=== PATIENT | female | born 1955 | race Caucasian/White ===

== ENCOUNTER 2017-04-08 10:15 | Day surgery (SDC) | payer MEDICARE, OTHER ==
[~2017-04-08] VITALS: Ht 160 cm; Wt 68.4 kg
[~2017-04-08 10:15] MED LIST: ALBU6.7H INH; ATOR20TA PO; CLAR10TA7 PO; CYMB60CA PO; FAMO40TA PO; FLUTPOW4; LAMO200T PO; LOPE2 PO; MAXZ25 PO; METO25 PO; MONT10 PO; NAPR250T57 PO; PROT40TA PO; TRAZ150T75 PO; [UNRECOGNIZED DRUG - OTHER] PO
[2017-04-08] MEDS ORDERED: NS 1000P @30 MLS/HR (KVO) IV SCH (11:00)
[2017-04-08 11:25] LABS: AUTOMATED NEUTROPHIL # 4.3 TH/MM3 (1.8-7.7); BASOPHIL # 0.1 TH/MM3 (0-0.2); BASOPHIL % 1.1 % (0.0-2.0); EOSINOPHIL # 0.2 TH/MM3 (0-0.4); EOSINOPHIL % 2.4 % (0.0-4.0); HEMATOCRIT 42.6 % (35.0-46.0); HEMO FLAGS DIFF FINAL; LYMPH % 23.5 % (9.0-44.0); LYMPHOCYTE # 1.5 TH/MM3 (1.0-4.8); MEAN CELL VOLUME 93.9 FL (80.0-100.0); MEAN CORPUSCULAR HEMOGLOBIN 31.3 PG (27.0-34.0); MEAN CORPUSCULAR HGB CONC 33.4 % (32.0-36.0); MONO % 6.1 % (0.0-8.0); NEUT % 66.9 % (16.0-70.0); PLATELET COUNT 345 TH/MM3 (150-450); RED BLOOD COUNT 4.54 MIL/MM3 (4.00-5.30); RED CELL DISTRIBUTION WIDTH 13.6 % (11.6-17.2); WHITE BLOOD COUNT 6.5 TH/MM3 (4.0-11.0)
[2017-04-08] MEDS ORDERED: NITR1SUB3 SL (11:25)
[2017-04-08] MEDS ORDERED: IBUP-232 PO (11:25)
[2017-04-08] MEDS ORDERED: TRAZ1TAB45 PO (11:25)
[2017-04-08] MEDS ORDERED: ASPI81TA81 (11:25)
[2017-04-08] MEDS ORDERED: VENTAER INH (11:25)
[2017-04-08] MEDS ORDERED: FLUTI110I INH (11:25)
[2017-04-08] MEDS ORDERED: CLON0.5T PO (11:25)
[2017-04-08] MEDS ORDERED: DULO1CAP3 PO (11:25)
[2017-04-08] MEDS ORDERED: PREV30TA3 PO (11:25)
[2017-04-08] MEDS ORDERED: METO25TA3 PO (11:25)
[2017-04-08] MEDS ORDERED: ATOR40TA16 PO (11:25)
[2017-04-08] MEDS ORDERED: DIPH2.5T60 (11:25)
[2017-04-08] MEDS ORDERED: DICY10CA12 PO (11:25)
[2017-04-08] MEDS ORDERED: LAMO200T PO (11:25)
[2017-04-08 11:37] VITALS: BP 138/81; PULSE 77; RESP 18; TEMP 98.3; O2SAT 98
[2017-04-08 11:37] LABS: PROTHROMBIN TIME - PATIENT 10.2 SEC (9.8-11.6)
[2017-04-08 11:39] LABS: APTT (PATIENT) 27.1 SEC (24.3-30.1); INTERNATIONAL NORMALIZED RATIO 0.9 RATIO
[2017-04-08 12:12] LABS: BICARBONATE 30.7 MEQ/L (21.0-32.0); POTASSIUM 3.8 MEQ/L (3.5-5.1)
[2017-04-08] MEDS ORDERED: IOHEXOL 350 MG/ML 100 ML BTL (for Cath Lab) OTHER ONE (12:50)
[2017-04-08] MEDS ORDERED: HEPARIN-NS/PF INJ 500 ML ONE (13:00)
[2017-04-08] MEDS ORDERED: MIDAZOLAM HCL 5 MG/5 ML VIAL ONE (13:01)
--- NOTE | 2017-04-08 14:06 | CATHPROC ---
[facility] HIS Report Study Information Study Number Admission Scheduled Start Study Start [id number] Apr 08 2017 10:15AM 04/08/2017 Apr 08 2017 12:51PM [place] [facility]iac Catheterization Admit Source Facility Department Other [facility] - [facility] Tobacco Processing Supervisor Physician and Clinical Staff Initial Roel Dior Custodian Paxton Bateman,MATT Other cathlab, cathlab Recorder Mauro Luz RCIS(BS) Recorder Rachel Lara RCIS TECH2 Scrub Rachel Lara RCIS TECHMelania Procedures Performed Procedure Location (Site) Vessel Name Angiogram LV LV Ventricle Coronary Angiograms LCA Left Coronary Coronary Angiograms RCA Right Coronary Equipment Time Part Maker Description Size Mfg Part Number Used/Scraped TRANSDUCER, TRChatousAVE [id number] 12:52 My Fashion Database * Used W/STOCKCOCK *[id number] 13:45 [email or web address] MEDICAL VASCADE, FR5 CLOSURE SYSTEM FR 5 Used *[id number] [id number] *[id number] [id number] *[id number] [id number] *[id number] 12:52 MEDLINE IND[employer]RIES PACK, CCL CUSTOM * Used *[id number] 12:52 [employer] PACER PEN, SKIN DUAL W/ RULER * Used *[id number] 12:52 [employer] WIRE, 3MMJ .035 180CM 180CM Used *[id number] PROBE COVER, STERILE [id number] 12:52 TeamBuy * Used ULTRASOUND W/ GEL *[id number] 12:52 NAMIC MANIFOLD, 4 PORT * Used *[id number] 13:02 NAMIC TUBING, HIGH PRESSURE 48" 48" Used *[id number] 12:52 NAMIC TUBING, HIGH PRESSURE 48" 48" Used *[id number] 12:52 NYCOMED OMNIPAQUE, 350 MG, 150ML 150ML [id number] Used [id number] 12:52 H[employer] MED[employer] BLANKET,WARM AIR CCL * Used *[id number] 12:52 TERUMO MEDICAL SHEATH, FR5 TERUMO (10CM) FR 5 Used *[id number] Equipment Model, Serial, Lot Number and Expiration Data Description Model Number Serial Number Lot Number Expiration Date VASCADE, FR5 CLOSURE SYSTEM [id number] History: Current Medications Medication Dosage/Unit Route Frequency Last Date/Time Taken LOPRESSOR ASA Flovent NTG SL Statins (any) History: Allergies Allergy Reaction *MDRO Multi-Drug Resistant Organism Penicillin HIVES Sulfa Hives Synvisc SEVERE JOINT SWELLING; PAIN History: Risk Factors Family History of Hypertension Dyslipidemia Premature CAD Yes Yes No Prior PCI Prior PCIDate Prior CABG Yes 08/26/2013 No Cerebrovascular Disease Yes History: Symptoms/Diagnosis Selection Items Chest pain Palpitations SOB History: Stress Tests Stress or Imaging Studies Performed Yes Standard Exercise Stress Test No Stress Echo No Stress Test SPECT Stress Test SPECT Result Stress Test SPECT Ischemia Risk/Extent Yes Positive Low Stress Test CMR No Cardiac CTA Coronary Calcium Score No No History: Other Disease Selection Items Cancer History: Other Current Smoker Method Quit Packs a Day Years Used Pack Years No Cigarettes 30 Years Ago 1 20 20 Labs Hgb (g/dl) Hct (%) WBC (l/cumm) Platelets (thousands) 11.60-17.00 35.00-51.00 4.00-11.00 150.00-450.00 14.2 42.6 6.5 345 Glucose (mg/dl) BUN (mg/dl) Creatinine (mg/dl) BUN:Creatinine (1:x) 74.00-106.00 7.00-18.00 0.50-1.30 10.00-20.00 85 11 0.8 13.8 Na (meq/l) K (meq/l) 136.00-145.00 3.50-5.10 141 3.8 INR (PTT:PT) 0.90-1.10 0.9 CPK-MB (ng/ML) 0.50-3.60 Not Drawn Medication Medication Total Dose (Bolus/Oral) Medication Total Dosage/Unit 1% XYLOCAINE 20 mL FENTANYL 75 mcg VERSED 2 mg Medications (Bolus/Oral) Medication Time Given Dosage/Unit Administered By Reason VERSED 04/08/2017 1:30:33 PM 2 mg Paxton Bateman 2 mg VERSED given in lab by Paxton Bateman, RN via Peripheral IV. 1% XYLOCAINE 04/08/2017 1:31:11 PM 20 mL Roel Coburn 20 mL 1% XYLOCAINE given in lab by Roel Coburn in Right Groin via Subcutaneous. FENTANYL 04/08/2017 1:31:30 PM 50 mcg Paxton Bateman 50 mcg FENTANYL given in lab by Paxton Bateman RN in Left Antecubital via Peripheral IV. FENTANYL 04/08/2017 1:33:10 PM 25 mcg Paxton Bateman 25 mcg FENTANYL given in lab by Paxton Bateman RN in Left Antecubital via Peripheral IV. Medication (Drip) Medication Time Given Dosage/Unit Concentration/Unit Diluent (ml) Solutio n IV Solutions 04/08/2017 12:52:12 PM 0 mL (IV) 500 NaCl .9 Patient arrived on IV Solutions given by melissa, melissa in Left Antecubital via Peripheral IV. Pump /Drip Flow = 20 ml/hr using NaCl .9. Ordered by Roel Coburn. Initial Case Assessment Cardiovascular HR Rhythm NIBP Chest Pain 52 sinus 158/83 0 Edema Present Skin color Skin None Normal Warm Dry Circulatory - Right Pulses Dorsalis Pedis Femoral 1 3 Scale (0,1,2,3,4,d) Circulatory - Left Pulses Dorsalis Pedis Femoral 1 3 Scale (0,1,2,3,4,d) Neurological State Oriented to time-place- Alert Moves all extremities person Respiration - General Respiration Rate SpO2 (%) (B/min) 15 99 Final Case Assessment Cardiovascular HR Rhythm NIBP Chest Pain 78 sr 128/80 0 Circulatory - Right Pulses Dorsalis Pedis Femoral 1 3 Scale (0,1,2,3,4,d) Circulatory - Left Pulses Dorsalis Pedis Femoral 1 3 Scale (0,1,2,3,4,d) Neurological State Oriented to time-place- Alert Moves all extremities person Respiration - General Respiration Rate SpO2 (%) (B/min) 22 98 Chronological Log Time Study Chronological Log 12:52:03 Patient arrived via Bed. 12:52:03 Patient Name, D.O.B, / Armband Verified By R.N. 12:52:04 Consent signed by the physician and the patient and verified by the Cigar Tobacco Processing Supervisor staff. 12:52:04 Pre-op and post- op instructions given; patient acknowledges understanding of instructions. 12:52:05 Verbal Stimulation=2 Physical Stimulation=2 Airway=2 Respiration=2 TOTAL=8. (0=absent, 1=li mited, 2=present) 12:52:05 Presedation assessment performed by Cigar Tobacco Processing Supervisor RN. 12:52:06 Immediate Presedation assesment performed by physician. 12:52:07 Patient has been NPO for More than 6Hrs. 12:52:07 Skin Breakdown- none per patient 12:52:08 Patient Warmer Placed on the Table. 12:52:10 Melody Prominences Protected 12:52:12 A # 20 IV was noted in the Antecubital (left). Grade = 0 Patient arrived on IV Solutions given by cathlab, cathlab in Left Antecubital via Peripheral IV . Pump/Drip Flow = 20 12:52:12 ml/hr using NaCl .9. Ordered by Roel Coburn. 12:52:13 History and physical on the chart or being dictated. Vitals capture started with the following parameters, Patient=Adult, Interval=5 min, Initial Pr cxpgbx=511 mmHg, 13:01:41 Deflation Rate=5 mmHg, Cuff placed on Right Arm Assessment: Initial Case, HR=52 BPM, Rhythm=sinus, SRRE=769/83 mmhg, Chest Pain=0, Edema=None, Color=Normal, Skin = Warm, Dry Right Pulses: Olaf Ped=1, Femoral=3 13:01:43 Left Pulses: Olaf Ped=1, Femoral=3 Neurological: State=Alert, Ox3, MIRELES Respiration: Resp=15 B/min, SpO2=99 % 13:02:05 Reference ECG taken 13:02:19 HR=52 bpm, DMCP=566/83 mmhg, YmM9=937.0 %, Resp=12 B/min, Pain=0, Grant=10, Roman=2 13:05:17 Bilateral groins prepped with 2% chlorhexidine, and with a 3 min. waiting time. 13:06:28 Bilateral groins prepped with 2% chlorhexidine, and with a 3 min. waiting time. 13:07:20 HR=53 bpm, KUOG=735/89 mmhg, SpO2=97.0 %, Resp=12 B/min, Pain=0, Grant=10, Roman=2 13:10:26 paged 13:10:55 Pressure channel 1 zeroed. 13:12:23 HR=49 bpm, INNX=573/84 mmhg, SpO2=99.0 %, Resp=9 B/min 13:17:15 The Recorder is being relieved by Echo, Rachel, CONTACT LENS LATHE OPERATOR TECH2. 13:17:22 HR=49 bpm, UJGM=271/83 mmhg, SpO2=98.0 %, Resp=10 B/min 13:22:21 HR=49 bpm, LDUI=185/83 mmhg, SpO2=97.0 %, Resp=9 B/min 13:22:52 MD arrived. 13:27:20 HR=50 bpm, TFKJ=851/81 mmhg, SpO2=97.0 %, Resp=15 B/min, Pain=0, Grant=10, Roman=2 13:30:33 2 mg VERSED given in lab by Paxton Bateman, MATT via Peripheral IV. 13:30:51 Contrast Scanned 13:30:51 Immediate Presedation assesment performed by physician. Time Out. Correct patient, correct procedure,correct physician, ,power injector loaded with con trast with surgical team 13:30:52 present. Time Out Concurred by MD, individual staff in procedure 13:31:05 Case Start 13:31:06 Verbal Stimulation=2 Physical Stimulation=2 Airway=2 Respiration=2 TOTAL=8. (0=absent, 1=li mited, 2=present) 13:31:11 20 mL 1% XYLOCAINE given in lab by Roel Coburn in Right Groin via Subcutaneous. 13:31:30 50 mcg FENTANYL given in lab by Paxton Bateman, MATT in Left Antecubital via Peripheral IV. 13:32:21 HR=60 bpm, WSBJ=998/83 mmhg, SpO2=93.0 %, Resp=14 B/min 13:32:28 Access site was Right Femoral Artery. 13:32:36 A SHEATH, FR5 TERUMO (10CM) FR 5 was advanced into the Fem Art (right) using the Percutaneo us technique. 13:33:10 25 mcg FENTANYL given in lab by Paxton Bateman, MATT in Left Antecubital via Peripheral IV. A PIGTAIL ANG. INFINITI CATHETER FR 5 was advanced over a wire. OMNIPAQUE, 350 MG, 150ML 150ML was used 13:33:48 for injections. Recorded Pressure: LV, HR=68, Condition=Condition 1 13:34:24 (Left Ventricle) LV 149/4/12 13:35:19 The LV was injected at 10 cc/sec for a total of 30. OMNIPAQUE, 350 MG, 150ML 150ML used. Recorded Pressure: LV, Ao, HR=73, Condition=Condition 1 13:36:02 (Left Ventricle) LV 140/4/12, (Aorta) Ao 141/71/102 13:36:28 Catheter was removed A JL 4.0 INFINITI CATHETER FR 5 was advanced over a wire. OMNIPAQUE, 350 MG, 150ML 150ML was us ed for 13:36:29 injections. 13:37:20 HR=63 bpm, AWEB=630/84 mmhg, SpO2=95.0 %, Resp=10 B/min 13:37:56 The LCA was injected and visualized at various angles. OMNIPAQUE, 350 MG, 150ML 150ML used . 13:39:28 Catheter was removed A AR MOD INFINITI CATHETER FR 5 was advanced over a wire. OMNIPAQUE, 350 MG, 150ML 150ML was us ed for 13:39:30 injections. 13:40:42 The RCA was injected and visualized at various angles. OMNIPAQUE, 350 MG, 150ML 150ML used . 13:42:19 HR=73 bpm, ONGT=897/85 mmhg, SpO2=96.0 %, Resp=10 B/min 13:42:59 Catheter was removed 13:43:21 An injection in the Fem Art (right) was made through the SHEATH, FR5 TERUMO (10CM) FR 5. 13:44:18 VASCADE, FR5 CLOSURE SYSTEM FR 5 placement in the Fem Art (right) 13:47:23 HR=79 bpm, KWMY=274/75 mmhg, SpO2=96.0 %, Resp=15 B/min 13:50:35 Case End 13:52:20 HR=79 bpm, HTQR=016/80 mmhg, SpO2=97.0 %, Resp=12 B/min 13:54:45 Sterile dressing applied to site 13:54:49 No case complications noted. 13:54:51 Cine recording checked. 13:54:58 Bedside Report will be given. Assessment: Final Case, HR=78 BPM, Rhythm=sr, FFLR=802/80 mmhg, Chest Pain=0 Right Pulses: Olaf Ped=1, Femoral=3 13:55:00 Left Pulses: Olaf Ped=1, Femoral=3 Neurological: State=Alert, Ox3, MIRELES Respiration: Resp=22 B/min, SpO2=98 % 13:59:41 Patient moved to BED 13:59:48 Patient transported to DOCU End Study - Contrast Media Used In Study Contrast Total Opened (mL) Total Used (mL) Total Wasted (mL) Omnipaque 80 80 0 End Study - Maximum Contrast Load Max Contrast Load (mL) 426.1 End Study - Radiation Exposure Fluoro Time (minutes) 1.2 End Study - Sheaths Sheaths Pulled By Sheath Hold Time (min) Roel Coburn 5 End Study - Patient Disposition Complications Transferred To Telemetry Bed
--- NOTE | 2017-04-08 16:45 | EKG ---
Date Performed: 04/08/2017 Time Performed: 11:20:08 PTAGE: 61 years EKG: Sinus rhythm . Leftward axis Anteroseptal T wave changes are nonspecific Low QRS voltages in precordial leads Bord soledad ECG PREVIOUS TRACING : 06/17/2012 11.19 Since previous tracing, no significant change noted DOCTOR: Sade Yarbrough Interpretating Date/Time 04/08/2017 16:43:17
--- NOTE | 2017-04-09 18:39 | MA ---
cc: ROBYN WEBER DATE: 04/09/2017 INDICATIONS Unstable angina, coronary artery disease, history of LAD stenting. PROCEDURE PERFORMED Retrograde heart catheterization with left ventriculography and selective coronary angiography. ACCESS SITE Right femoral artery. EQUIPMENT USED 5 [place] JL4 and AR modified coronary artery catheters. MEDICATIONS Versed IV, Fentanyl IV. CONTRAST Omnipaque 80 cc. COMPLICATIONS None. BLOOD LOSS: Less than 10 cc METHOD OF HEMOSTASIS Vascade closure. RESULTS HEMODYNAMICS Heart rate 55 beats per minute. Left ventricular end-diastolic pressure 4 mmHg. Aorta 140/71/1 LEFT VENTRICULOGRAPHY Left ventricular ejection fraction 60%. Wall motion normal. No mitral regurgitation. CORONARY ANGIOGRAPHY The main coronary artery is patent with patent stent in the proximal portion. T1 patent. patent. OM1 patent. Ramus intermediate, patent. The right coronary artery is patent. PDA is patent. PLV is patent. DIAGNOSIS: 1. Wide open coronaries with patent stent in the proximal LAD. 2. Preserved left ventricular systolic function. DISPOSITION Ms. Blount will be monitored on telemetry after the procedure. Will continue her current medical program including aggressive modification of cardiac risk factors. I will see her back for follow up in our office after discharge. MD DA Flanagan/MAURICE /2:00 PM /6:09 PM
== END 2017-04-08 17:08 | disposition home or self-care (01) ==
LOC: HDOC 10:15 → HDIC 10:15 → HDOC 17:08
PROVIDERS: ATTEND Internal Medicine Interventional Cardiology
DX: I25.110 Atherosclerotic heart disease of native coronary artery with unstable angina pectoris (principal); E78.5 Hyperlipidemia, unspecified; J45.909 Unspecified asthma, uncomplicated; G40.909 Epilepsy, unspecified, not intractable, without status epilepticus; M54.9 Dorsalgia, unspecified; Z86.73 Personal history of transient ischemic attack (TIA), and cerebral infarction without residual deficits; Z95.5 Presence of coronary angioplasty implant and graft; Z01.818 Encounter for other preprocedural examination; Z01.810 Encounter for preprocedural cardiovascular examination; R06.02 Shortness of breath
CPT/HCPCS: 80048; 85025; 85610; 85730; 93005; 93458; C1760; C1769; C1893; G0269; J1644; J2250; J3010; Q9967

== ENCOUNTER 2017-04-29 17:01 | Inpatient (IN) | payer MEDICARE, OTHER ==
[2017-04-29] VITALS (10 sets, daily range): BP systolic 111–133; BP diastolic 65–86; PULSE 57–80; RESP 14–20; TEMP 97.9–98.2; O2SAT 97–100
[~2017-04-29] VITALS: Ht 160 cm; Wt 72.0 kg
[~2017-04-29 17:01] MED LIST changes: -ALBU6.7H INH; +ASPI81TA81; -ATOR20TA PO; +ATOR40TA16 PO; -CLAR10TA7 PO; +CLON0.5T PO; -CYMB60CA PO; +DICY10CA12 PO; +DIPH2.5T60; +DULO1CAP3 PO; -FAMO40TA PO; +FLUTI110I INH; -FLUTPOW4; +IBUP-232 PO; -LOPE2 PO; -MAXZ25 PO; -METO25 PO; +METO25TA3 PO; -MONT10 PO; -NAPR250T57 PO; +NITR1SUB3 SL; +PREV30TA3 PO; -PROT40TA PO; -TRAZ150T75 PO; +TRAZ1TAB45 PO; +VENTAER INH; -[UNRECOGNIZED DRUG - OTHER] PO
--- NOTE | 2017-04-29 17:22 | RADRPT ---
EXAM DATE/TIME: 04/29/2017 17:02 [place] COMPARISON: No previous studies available for comparison. INDICATIONS : Chest pain. MEDICAL HISTORY : Hypertension. Carcinoma, breast. Seizures. Asthma. SURGICAL HISTORY : Mastectomy, bilateral. Hysterectomy. ENCOUNTER: Initial ACUITY: 1 day PAIN SCORE: 5/10 LOCATION: Bilateral chest FINDINGS: A single view of the chest demonstrates the lungs to be symmetrically aerated without evidence of mas s, infiltrate or effusion. The cardiomediastinal contours are unremarkable. Surgical clips are seen in the left axilla. Osseous structures are intact. CONCLUSION: No acute disease. Anjel Weir MD FACR on April 29, 2017 at 17:20 Board Certified Radiologist. This report was verified electronically.
--- NOTE | 2017-04-29 17:26 | PD ---
HPI Chief Complaint: Chest Pain Time Seen by Provider: 17:08 Travel History International Travel<30 days: No Contact w/Intl Traveler<30days: No Traveled to known affect area: No History of Present Illness HPI Patient is a 61-year-old female with history of hypertension, coronary artery disease, with history of one cardiac stent to the [facility], emergency room with complaints of chest pain. She reports that she has been having chest pain which is not going up the past few weeks. She reports that 2 weeks ago, she was seen by her freight engineer Dr. Coburn and had a cardiac catheterization which was negative at that time. Reports that prior to coming to the emergency room today, she began to have chest pain. She reports "pressure" sensation to her substernum. Patient reports that chest pain was severe and unrelenting, she did take multiple nitroglycerin which helped with her symptoms but continued to have chest pain this time. Patient with no shortness of breath or diaphoresis with her symptoms. She did take an aspirin prior to coming to the emergency room. PFSH Past Medical History Asthma: Yes Blood Disorders: No Cancer: Yes (BILATERAL BREAST CA, MELANOMAS/OTHER SKIN CA MULTIPLE) Cardiovascular Problems: Yes Chemotherapy: Yes Cerebrovascular Accident: Yes Diabetes: No Endocrine: No Gastrointestinal Disorders: Yes (GERD, ESOPHAGEAL STRICTURE/DILATION, NAUSEA/ VOMITING) Glaucoma: No Genitourinary: No Hepatitis: No Hiatal Hernia: No Hypertension: Yes Immune Disorder: No Medical other: Yes (STROKE 2008; SEIZURES(JESSE'S PARALYSIS),SPLEEN LACERATION 2009, "BAD" KNEES) Musculoskeletal: Yes (OSTEOARTHRITIS, LOWER BACK PROBLEMS, SPINAL FX AFTER FALLING FROM HORSE,) Neurologic: Yes (BRAIN MASS, SEIZURES, HEADACHES, (SEVERE COGNITIVE DISORDER)) Psychiatric: Yes (PANIC ATTACKS) Reproductive: No Respiratory: Yes (ASTHMA, BRONCHITIS-08/2012-12/2012) Radiation Therapy: No Seizures: Yes Thyroid Disease: No Past Surgical History Abdominal Surgery: No AICD: No Body Medical Devices: GRACE. BREAST IMPLANTS Cardiac Surgery: No Section: Yes Ear Surgery: No Endocrine Surgery: No Eye Surgery: No Genitourinary Surgery: No Gynecologic Surgery: Yes ( X 4, TOTAL HYSTERECTOMY) Hysterectomy: Yes Joint Replacement: No Mastectomy: Yes (BILATERAL) Oral Surgery: Yes (TONSILLECTOMY) Pacemaker: No Thoracic Surgery: Yes (2005 GRACE MASTECTOMIES/RECONSTRUCTION WITH IMPLANTS) Other Surgery: Yes (MELANOMA REMOVED, LYMPH NODES REMOVED) Social History Alcohol Use: No (RARELY) Tobacco Use: No (quit 1979) Substance Use: No Allergies-Medications (Allergen,Severity, Reaction): Coded Allergies: Sulfa (Sulfonamide Antibiotics) (Unverified Allergy, Severe, Hives, 04/29/17 ) THROAT CLOSED UP penicillin G (Unverified Allergy, Severe, HIVES, 04/29/17) hylan G-F 20 (Unverified Allergy, Intermediate, SEVERE JOINT SWELLING; PAIN, 04/29/17) *MDRO Multi-Drug Resistant Organism (Verified Allergy, Unknown, 04/29/17) MRSA Reported Meds & Prescriptions Reported Meds & Active Scripts Active Reported Nitroglycerin SL (Nitroglycerin) 0.4 Mg Subl 0.4 Mg SL DIRECTED PRN ONE TABLET UNDER THE TONGUE NEEDED FOR CHEST PAIN, MAY REPEAT EVERY FIVE MINUTES FOR A TOTAL OF 3 DOSES OR CALL 911 IF NO RELIEF Prevacid Solutab ODT (Lansoprazole) 30 Mg Tab 30 Mg PO DAILY Mix with 4 ml water before giving via tube. Duloxetine DR (Duloxetine HCl) 60 Mg Capdr 60 Mg PO DAILY Ibuprofen 600 Mg Tab 600 Mg PO Q6H PRN Flovent Hfa 12 GM Inh (Fluticasone Propionate) 110 Mcg/Act Inh 2 Puff INH BID Trazodone (Trazodone HCl) 150 Mg Tablet 150 Mg PO HS Lamotrigine 200 Mg Tab 200 Mg PO BID Ventolin Hfa 18 GM Inh (Albuterol Sulfate) 90 Mcg/Act Aer 2 Puff INH Q4-6H PRN Aspir-81 (Aspirin) 81 Mg Tabdr Clonazepam 0.5 Mg Tab 0.5 Mg PO BID Metoprolol Tartrate 25 Mg Tab 25 Mg PO BID Review of Systems General / Constitutional: No: Fever Eyes: No: Visual changes HENT: No: Headaches Cardiovascular: Positive: Chest Pain or Discomfort Respiratory: No: Shortness of Breath Gastrointestinal: No: Abdominal Pain Genitourinary: No: Dysuria Musculoskeletal: No: Pain Skin: No Rash Neurologic: No: Weakness Psychiatric: No: Depression Endocrine: No: Polydipsia Hematologic/Lymphatic: No: Easy Bruising Physical Exam Narrative GENERAL: moderate distress SKIN: Focused skin assessment warm/dry. HEAD: Atraumatic. Normocephalic. EYES: Pupils equal and round. No scleral icterus. No injection or drainage. ENT: No nasal bleeding or discharge. Mucous membranes pink and moist. NECK: Trachea midline. No JVD. CARDIOVASCULAR: Regular rate and rhythm. No murmur appreciated. RESPIRATORY: No accessory muscle use. Clear to auscultation. Breath sounds equal bilaterally. GASTROINTESTINAL: Abdomen soft, non-tender, nondistended. Hepatic and splenic margins not palpable. MUSCULOSKELETAL: No obvious deformities. No clubbing. No cyanosis. No edema. NEUROLOGICAL: Awake and alert. No obvious cranial nerve deficits. Motor grossly within normal limits. Normal speech. PSYCHIATRIC: Appropriate mood and affect; insight and judgment normal. Data Data Last Documented VS Vital Signs Date Time Temp Pulse Resp B/P (MAP) Pulse Ox O2 Delivery O2 Flow Rate FiO2 04/29/17 18:17 71 16 114/70 (85) 99 Nasal Cannula 2.00 04/29/17 17:03 97.9 Orders Orders Electrocardiogram (04/29/17 17:04) Ckmb (Isoenzyme) Profile (04/29/17 17:04) Complete Blood Count With Diff (04/29/17 17:04) Comprehensive Metabolic Panel (04/29/17 17:04) Prothrombin Time / Inr (Pt) (04/29/17 17:04) Act Partial Throm Time (Ptt) (04/29/17 17:04) Troponin I (04/29/17 17:04) Chest, Single Ap (04/29/17 17:04) Ecg Monitoring (04/29/17 17:04) Bilateral Bp Monitoring (04/29/17 17:04) Iv Access Insert/Monitor (04/29/17 17:04) Oximetry (04/29/17 17:04) Oxygen Administration (04/29/17 17:04) Electrocardiogram (04/29/17 17:17) B-Type Natriuretic Peptide (04/29/17 17:17) Ckmb (Isoenzyme) Profile (04/29/17 17:17) Magnesium (Mg) (04/29/17 17:17) Act Partial Throm Time (Ptt) (04/29/17 17:17) Troponin I (04/29/17 17:17) Lipase (04/29/17 17:17) Nitroglycerin-D5w 50 Mg/250 Ml (Nitrogly (04/29/17 17:30) Sodium Chloride 0.9% Flush (Ns Flush) (04/29/17 17:30) Sodium Chlorid 0.9% 500 Ml Inj (Ns 500 M (04/29/17 17:30) Aspirin Chew (Aspirin Chew) (04/29/17 17:45) Morphine Inj (Morphine Inj) (04/29/17 18:15) Consult Cardiology (04/29/17 ) Heparin-D5w 25,000 U/250 Ml (Heparin-D5w (04/29/17 18:30) Admit To Inpatient (04/29/17 ) Vital Signs (Adult) Q4H (04/29/17 18:30) Activity Oob With Assistance (04/29/17 18:30) Architect [employer] / Telemetry .CONTINUOUS (04/29/17 18:30) Diet Heart Healthy (04/29/17 Dinner) Sodium Chlor 0.9% 1000 Ml Inj (Ns 1000 M (04/29/17 18:30) Sodium Chloride 0.9% Flush (Ns Flush) (04/29/17 18:30) Sodium Chloride 0.9% Flush (Ns Flush) (04/29/17 21:00) Ondansetron Inj (Zofran Inj) (04/29/17 18:30) Comprehensive Metabolic Panel (04/30/17 06:00) Complete Blood Count With Diff (04/30/17 06:00) Case Management Consult (04/29/17 18:30) Scd Bilateral/Knee High FRANCINE.BID (04/29/17 18:30) Naloxone Inj (Narcan Inj) (04/29/17 18:30) Magnesium Hydroxide Liq (Milk Of Magnesi (04/29/17 18:30) Sennosides (Senokot) (04/29/17 18:30) Bisacodyl Supp (Dulcolax Supp) (04/29/17 18:30) Lactulose Liq (Lactulose Liq) (04/29/17 18:30) Npo After Midnight W/ Po Meds (04/29/17 Dinner) Inpatient Certification (04/29/17 ) Admit Order (Ed Use Only) (04/29/17 18:32) Labs Laboratory Tests Test 04/29/17 16:08 04/29/17 17:00 Prothrombin Time 10.4 SEC Prothromb Time International Ratio 0.9 RATIO Activated Partial Thromboplast Time 27.3 SEC White Blood Count 8.9 TH/MM3 Red Blood Count 4.06 MIL/MM3 Hemoglobin 12.9 GM/DL Hematocrit 38.8 % Mean Corpuscular Volume 95.5 FL Mean Corpuscular Hemoglobin 31.8 PG Mean Corpuscular Hemoglobin Concent 33.3 % Red Cell Distribution Width 14.0 % Platelet Count 345 TH/MM3 Mean Platelet Volume 8.4 FL Neutrophils (%) (Auto) 66.5 % Lymphocytes (%) (Auto) 23.8 % Monocytes (%) (Auto) 6.2 % Eosinophils (%) (Auto) 2.9 % Basophils (%) (Auto) 0.6 % Neutrophils # (Auto) 5.9 TH/MM3 Lymphocytes # (Auto) 2.1 TH/MM3 Monocytes # (Auto) 0.6 TH/MM3 Eosinophils # (Auto) 0.3 TH/MM3 Basophils # (Auto) 0.1 TH/MM3 CBC Comment DIFF FINAL Differential Comment Blood Urea Nitrogen 9 MG/DL Creatinine 0.86 MG/DL Random Glucose 91 MG/DL Total Protein 7.3 GM/DL Albumin 4.0 GM/DL Calcium Level 9.0 MG/DL Alkaline Phosphatase 82 U/L Aspartate Amino Transf (AST/SGOT) 19 U/L Alanine Aminotransferase (ALT/SGPT) 23 U/L Total Bilirubin 0.4 MG/DL Sodium Level 141 MEQ/L Potassium Level 3.7 MEQ/L Chloride Level 106 MEQ/L Carbon Dioxide Level 26.1 MEQ/L Anion Gap 9 MEQ/L Estimat Glomerular Filtration Rate 67 ML/MIN Total Creatine Kinase 78 U/L Troponin I LESS THAN 0.02 NG/ML MDM Medical Decision Making Medical Screen Exam Complete: Yes Emergency Medical Condition: Yes Medical Record Reviewed: Yes Interpretation(s) EKG at 1705: NSR at 73bp, qt/qtc: 368/398, non specific t wave changes Vital Signs Date Time Temp Pulse Resp B/P (MAP) Pulse Ox O2 Delivery O2 Flow Rate FiO2 04/29/17 17:14 113/82 (92) 04/29/17 17:11 98 Nasal Cannula 2.00 04/29/17 17:11 99 Nasal Cannula 2.00 04/29/17 17:11 115/75 (88) 04/29/17 17:03 97.9 63 14 115/71 (86) 100 Differential Diagnosis Differential includes ACS, arrhythmia, unstable angina, electrolyte abnormality Narrative Course Patient is a 61-year-old female who presents to emergency room with chest pain. History of coronary artery disease with history of one cardiac stent. She does see Dr. Coburn in the office and recently had a cardiac cath. Patient reports severe crushing pain to her chest which started prior to coming to the emergency room. She was placed on a peoplesoft upon arrival to emergency room. EKG was obtained. Patient has take baby aspirin prior to arrival to the ER, will give another dose of asa 81mg SL nitro has been helping with her symptoms, patient reports "i took about 18 of them to get me here." Plan to place on a nitro drip. Will monitor on a peoplesoft Prior records were reviewed, patient had a cardiac catheter on April 09, 2017 which showed wide open coronary arteries with patent stent in the proximal LAD. Preserved left ventricular systolic function. Patient reports that pain has improved greatly with nitro drip. Plan to admit for unstable angina. Vital Signs Date Time Temp Pulse Resp B/P (MAP) Pulse Ox O2 Delivery O2 Flow Rate FiO2 04/29/17 17:59 57 14 111/65 (80) 99 Nasal Cannula 2.00 04/29/17 17:51 58 14 111/70 (84) 100 Nasal Cannula 2.00 04/29/17 17:47 60 113/82 04/29/17 17:14 113/82 (92) 04/29/17 17:11 98 Nasal Cannula 2.00 04/29/17 17:11 99 Nasal Cannula 2.00 04/29/17 17:11 115/75 (88) 04/29/17 17:03 97.9 63 14 115/71 (86) 100 Laboratory Tests Test 04/29/17 17:00 White Blood Count 8.9 TH/MM3 (4.0-11.0) Red Blood Count 4.06 MIL/MM3 (4.00-5.30) Hemoglobin 12.9 GM/DL (11.6-15.3) Hematocrit 38.8 % (35.0-46.0) Mean Corpuscular Volume 95.5 FL (80.0-100.0) Mean Corpuscular Hemoglobin 31.8 PG (27.0-34.0) Mean Corpuscular Hemoglobin Concent 33.3 % (32.0-36.0) Red Cell Distribution Width 14.0 % (11.6-17.2) Platelet Count 345 TH/MM3 (150-450) Mean Platelet Volume 8.4 FL (7.0-11.0) Neutrophils (%) (Auto) 66.5 % (16.0-70.0) Lymphocytes (%) (Auto) 23.8 % (9.0-44.0) Monocytes (%) (Auto) 6.2 % (0.0-8.0) Eosinophils (%) (Auto) 2.9 % (0.0-4.0) Basophils (%) (Auto) 0.6 % (0.0-2.0) Neutrophils # (Auto) 5.9 TH/MM3 (1.8-7.7) Lymphocytes # (Auto) 2.1 TH/MM3 (1.0-4.8) Monocytes # (Auto) 0.6 TH/MM3 (0-0.9) Eosinophils # (Auto) 0.3 TH/MM3 (0-0.4) Basophils # (Auto) 0.1 TH/MM3 (0-0.2) CBC Comment DIFF FINAL Differential Comment Blood Urea Nitrogen 9 MG/DL (7-18) Creatinine 0.86 MG/DL (0.50-1.00) Random Glucose 91 MG/DL (74-106) Total Protein 7.3 GM/DL (6.4-8.2) Albumin 4.0 GM/DL (3.4-5.0) Calcium Level 9.0 MG/DL (8.5-10.1) Alkaline Phosphatase 82 U/L (45-117) Aspartate Amino Transf (AST/SGOT) 19 U/L (15-37) Alanine Aminotransferase (ALT/SGPT) 23 U/L (10-53) Total Bilirubin 0.4 MG/DL (0.2-1.0) Sodium Level 141 MEQ/L (136-145) Potassium Level 3.7 MEQ/L (3.5-5.1) Chloride Level 106 MEQ/L (98-107) Carbon Dioxide Level 26.1 MEQ/L (21.0-32.0) Anion Gap 9 MEQ/L (5-15) Estimat Glomerular Filtration Rate 67 ML/MIN (>89) Total Creatine Kinase 78 U/L (26-192) Troponin I LESS THAN 0.02 NG/ML Last Impressions Chest X-Ray 04/29/17 7204 Signed Impressions: Service Date/Time: Saturday, April 29, 2017 17:02 - CONCLUSION: No acute disease. Anjel Weir MD FACR call made to dr coburn, patients freight engineer. patient currently on nitro gtt, will add heparin gtt. call made to dr. soriano who accepts pt to service case reviewed with Dr. Yarbrough, request CTA to rule out PE, if cta neg, then admit to rule out acs Critical Care Narrative Aggregate critical care time was 30 minutes. Time to perform other separately billable procedures was not included in the critical care time. My time did not include minutes spent treating any other patients simultaneously or on activities that did not directly contribute to the patient's treatment. The services I provided to this patient were to treat and/or prevent clinically significant deterioration that could result in: , decompensation, deterioration I provided critical care services requiring my management, as noted below: Chart data review, documentation time, medication orders and management, vital sign assessments/reviewing monitor data, ordering and reviewing lab tests, ordering and interpreting/reviewing x-rays and diagnostic studies, care of the patient and discussion of the patient with the admitting physicians. Diagnosis Primary Impression: Unstable angina Admitting Information Admitting Physician Requests: Observation Maris Dutton DO Apr 29, 2017 17:26
[2017-04-29] MEDS ORDERED: SODIUM CHLORID 0.9% 500 ML INJ 500 ML IV ONE (17:30)
[2017-04-29] MEDS ORDERED: SODIUM CHLORIDE 0.9% FLUSH 10 ML FLUSH IVF PRN (17:30)
[2017-04-29] MEDS ORDERED: NITROGLYCERIN-D5W 50 MG/250 ML 250 ML IV ONE (17:30)
[2017-04-29] MEDS ORDERED: ASPIRIN 81 MG CHEW TAB PO ONE (17:45)
[2017-04-29 17:47] LABS: AUTOMATED NEUTROPHIL # 5.9 TH/MM3 (1.8-7.7); BASOPHIL # 0.1 TH/MM3 (0-0.2); BASOPHIL % 0.6 % (0.0-2.0); EOSINOPHIL # 0.3 TH/MM3 (0-0.4); EOSINOPHIL % 2.9 % (0.0-4.0); HEMATOCRIT 38.8 % (35.0-46.0); HEMO FLAGS DIFF FINAL; LYMPH % 23.8 % (9.0-44.0); LYMPHOCYTE # 2.1 TH/MM3 (1.0-4.8); MEAN CELL VOLUME 95.5 FL (80.0-100.0); MEAN CORPUSCULAR HEMOGLOBIN 31.8 PG (27.0-34.0); MEAN CORPUSCULAR HGB CONC 33.3 % (32.0-36.0); MONO % 6.2 % (0.0-8.0); NEUT % 66.5 % (16.0-70.0); PLATELET COUNT 345 TH/MM3 (150-450); RED BLOOD COUNT 4.06 MIL/MM3 (4.00-5.30); WHITE BLOOD COUNT 8.9 TH/MM3 (4.0-11.0)
[2017-04-29 17:56] LABS: ALT (GPT) 23 U/L (10-53); ANION GAP 9 MEQ/L (5-15); AST (GOT) 19 U/L (15-37); BICARBONATE 26.1 MEQ/L (21.0-32.0); BLOOD UREA NITROGEN 9 MG/DL (7-18); CHLORIDE 106 MEQ/L (98-107); GLOMERULAR FILTRATION RATE 67 ML/MIN (>89); POTASSIUM 3.7 MEQ/L (3.5-5.1); SODIUM (NA) 141 MEQ/L (136-145)
[2017-04-29 18:00] LABS: ALKALINE PHOSPHATASE 82 U/L (45-117); TOTAL BILIRUBIN ADULT 0.4 MG/DL (0.2-1.0)
[2017-04-29 18:02] LABS: CREATINE KINASE 78 U/L (26-192)
[2017-04-29] MEDS ORDERED: MORPHINE SULFATE 4 MG/ML INJ IV PUSH ONE (18:15)
[2017-04-29] MEDS ORDERED: ONDANSETRON HCL 4 MG/2 ML VIAL IVP PRN (18:30)
[2017-04-29] MEDS ORDERED: BISACODYL 10 MG SUPP RECTAL PRN (18:30)
[2017-04-29] MEDS ORDERED: LACTULOSE SYRUP 20 GM/30 ML CUP PO PRN (18:30)
[2017-04-29] MEDS ORDERED: HEPARIN-D5W 25,000 U/250 ML 250 ML IV PRN (18:30)
[2017-04-29] MEDS ORDERED: MAGNESIUM HYDROXIDE SUSP 30 ML CUP PO PRN (18:30)
[2017-04-29] MEDS ORDERED: SENNOSIDES 8.6 MG TAB PO PRN (18:30)
[2017-04-29] MEDS ORDERED: SODIUM CHLORIDE 0.9% FLUSH 10 ML FLUSH IV FLUSH PRN (18:30)
[2017-04-29] MEDS ORDERED: NALOXONE HCL 0.4 MG/ML AMP IV PRN (18:30)
[2017-04-29 18:36] LABS: APTT (PATIENT) 27.3 SEC (24.3-30.1); INTERNATIONAL NORMALIZED RATIO 0.9 RATIO; PROTHROMBIN TIME - PATIENT 10.4 SEC (9.8-11.6)
[2017-04-29] MEDS ORDERED: ALBUTEROL SULFATE 90 MCG/ACT HFA 8 GM INHALER INH PRN (18:45)
[2017-04-29] MEDS ORDERED: IOHEXOL 350 MG/ML 10 ML VIAL (for RAD DIAG) IVCONTRAST ONE (19:18)
--- NOTE | 2017-04-29 19:33 | RADRPT ---
EXAM DATE/TIME: 04/29/2017 19:09 [facility] COMPARISON: CHEST SINGLE AP, April 29, 2017, 17:02. INDICATIONS : Chest pain and elevated blood pressure; rule out pulmonary embolus. IV CONTRAST: 74 cc Omnipaque 350 (iohexol) IV RADIATION DOSE: 23.12 CTDIvol (mGy) MEDICAL HISTORY : Carcinoma, breast. Cardiovascular disease Seizures.Colitis SURGICAL HISTORY : Hysterectomy. Mastectomy, bilateral.LAD stent ENCOUNTER: Initial ACUITY: 1 day PAIN SCALE: 7/10 LOCATION: chest TECHNIQUE: Volumetric scanning of the chest was performed using a pulmonary embolism protocol MIP images were re constructed. Using automated exposure control and adjustment of the mA and/or kV according to patien t size, radiation dose was kept as low as reasonably achievable to obtain optimal diagnostic quality images. DICOM format image data is available electronically for review and comparison. Follow-up recommendations for detected pulmonary nodules are based at a minimum on nodule size and pa tient risk factors according to Fleischner Society Guidelines. FINDINGS: PULMONARY ARTERIES: No filling defects are seen in the pulmonary arteries through the segmental level. LUNGS: There is no consolidation or pneumothorax . No concerning pulmonary nodule is visualized. PLEURAE: There is no pleural thickening or pleural effusion. MEDIASTINUM: There is good visualization of the great vessels of the middle mediastinum. No evidence of mediastin al or hilar adenopathy/mass. MUSCULOSKELETAL: Within normal limits for patient age. MISCELLANEOUS: There is abnormal irregular soft tissue densities located medial to the spleen along the lateral stom ach. Bilateral breast implants are noted. CONCLUSION: 1. No evidence of pulmonary embolism. Lungs are clear. 2. Abnormal regular soft tissue density adjacent to the spleen and stomach which is of unclear signif icance but could represent inflammatory change and possible pancreatitis. Further evaluation with an abdomen CT with oral and intravenous contrast is recommended. Avtar Garcia MD on April 29, 2017 at 19:28 Board Certified Radiologist. This report was verified electronically.
[2017-04-29] MEDS: SODIUM CHLOR 0.9% 1000 ML INJ 1,000 ML IV SCH (19:52)
[2017-04-29 20:39] LABS: APTT (PATIENT) 27.6 SEC (24.3-30.1)
[2017-04-29] MEDS: FLUTICASONE PROPIONATE 110 MCG/ACT 12 GM INHALER INH SCH (21:00)
[2017-04-29] MEDS: lamoTRIgine 100 MG TAB PO SCH (21:00)
[2017-04-29] MEDS ORDERED: traZODone HCL 50 MG TAB PO SCH (21:00)
[2017-04-29 21:02] LABS: CREATINE KINASE 57 U/L (26-192)
[2017-04-29] MEDS: clonazePAM 0.5 MG TAB PO SCH (21:45)
[2017-04-29] MEDS: ATORVASTATIN 40 MG TAB PO SCH (21:45)
[2017-04-29] MEDS: SODIUM CHLORIDE 0.9% FLUSH 10 ML FLUSH IV FLUSH SCH (21:46)
[2017-04-29] MEDS: METOPROLOL TARTRATE 25 MG TAB PO SCH (21:47)
[2017-04-30] VITALS (13 sets, daily range): BP systolic 103–146; BP diastolic 55–88; PULSE 55–92; RESP 18–20; TEMP 97.6–98.8; O2SAT 96–99
[2017-04-30 02:27] LABS: AUTOMATED NEUTROPHIL # 4.2 TH/MM3 (1.8-7.7); BASOPHIL % 0.6 % (0.0-2.0); EOSINOPHIL # 0.2 TH/MM3 (0-0.4); EOSINOPHIL % 2.8 % (0.0-4.0); HEMATOCRIT 31.9 % (35.0-46.0); HEMO FLAGS DIFF FINAL; LYMPH % 28.2 % (9.0-44.0); MEAN CELL VOLUME 95.9 FL (80.0-100.0); MEAN CORPUSCULAR HEMOGLOBIN 31.9 PG (27.0-34.0); MEAN CORPUSCULAR HGB CONC 33.2 % (32.0-36.0); MONO % 7.7 % (0.0-8.0); NEUT % 60.7 % (16.0-70.0); PLATELET COUNT 249 TH/MM3 (150-450); RED BLOOD COUNT 3.32 MIL/MM3 (4.00-5.30); RED CELL DISTRIBUTION WIDTH 14.3 % (11.6-17.2); WHITE BLOOD COUNT 6.9 TH/MM3 (4.0-11.0)
[2017-04-30 02:37] LABS: APTT (PATIENT) 48.7 SEC (24.3-30.1)
[2017-04-30 02:55] LABS: ALKALINE PHOSPHATASE 64 U/L (45-117); ALT (GPT) 17 U/L (10-53); ANION GAP 6 MEQ/L (5-15); AST (GOT) 12 U/L (15-37); BICARBONATE 28.5 MEQ/L (21.0-32.0); BLOOD UREA NITROGEN 11 MG/DL (7-18); CHLORIDE 108 MEQ/L (98-107); GLOMERULAR FILTRATION RATE 75 ML/MIN (>89); POTASSIUM 3.5 MEQ/L (3.5-5.1); SODIUM (NA) 142 MEQ/L (136-145); TOTAL BILIRUBIN ADULT 0.4 MG/DL (0.2-1.0)
[2017-04-30] MEDS: SODIUM CHLOR 0.9% 1000 ML INJ 1,000 ML IV SCH ×2 (04:30→14:30)
[2017-04-30] MEDS: FLUTICASONE PROPIONATE 110 MCG/ACT 12 GM INHALER INH SCH (09:00)
--- NOTE | 2017-04-30 09:58 | PD.CONS ---
HPI Service cardiology physicians Consult Requested By Dr Dutton Reason for Consult Chest pain Primary Care Physician Jose Odell MD History of Present Illness The patient is a 61 year old female with a cardiac history of ASHD with history of LAD stent with recent cardiac cath 04/09/2017 revealed patent stent, HLD and CVA. Other notable history is recurrent esophageal spasm, GERD, breast cancer without radiation or chemotherapy and MRSA infection of left breast after implant requiring explant and revision. The patient presented to hospital for a sudden on set of midsternal chest pain that was a 25/10 rate pain associated with nausea, vomiting, SOB and diaphoresis. Her blood pressure was measured 225/ 185 mmHg on her home BP monitor. She took nitroglycerin which decreased her pain , and her BP decreased. Today, on evaluation, her primary complaint is slight increase of left breast fullness with medial tenderness, LUQ tenderness to palpation, and left axillary rib cage pain that does not improve with changing position. She denies midsternal chest pain, SOB or diaphoresis. Her GI doctor is in [place]. Her Oncologist is Dr Fraire. (Shameka Holman) Review of Systems Consitutional: DENIES: Fatigue, Fever, Chills, Weight gain, Weight loss Eyes: DENIES: Amaurosis [place], Change in vision HEENT: DENIES: Lightheadedness, Change in hearing Respiratory: COMPLAINS OF: Shortness of breath, DENIES: See HPI, Cough, Snoring , Wheezing, Sputum production Cardiovascular: COMPLAINS OF: Chest pain, DENIES: See HPI, Palpitations, Syncope, Tachycardia Gastrointestinal: COMPLAINS OF: Vomiting, DENIES: Nausea, Change in bowel habits, Reflux, Bloody stools, Melena Genitourinary: DENIES: Urinary incontinence, Difficulty voiding Integumentary: DENIES: Rash Neurologic: DENIES: Tingling or numbness, Memory problems, Poor Balance, Stroke symptoms Musculoskeletal: DENIES: Joint pain, Muscle pain, Limited range of motion, Back pain Psychiatric: DENIES: Anxiety, Depression, Sleep disturbances Hematologic: DENIES: Bruising tendencies, Bleeding tendencies Endocrine: DENIES: Weight gain, Weight loss, Thyroid disease (Shameka Holman ) Past Family Social History Allergies: Coded Allergies: Sulfa (Sulfonamide Antibiotics) (Unverified Allergy, Severe, Hives, 04/29/17 ) THROAT CLOSED UP penicillin G (Unverified Allergy, Severe, HIVES, 04/29/17) hylan G-F 20 (Unverified Allergy, Intermediate, SEVERE JOINT SWELLING; PAIN, 04/29/17) Past Medical History See HPI Past Surgical History Bilateral mastectomy Cardiac cath 04/09/[address] Coburn. See report Reported Medications Reported Meds & Active Scripts Active Reported Nitroglycerin SL (Nitroglycerin) 0.4 Mg Subl 0.4 Mg SL DIRECTED PRN ONE TABLET UNDER THE TONGUE NEEDED FOR CHEST PAIN, MAY REPEAT EVERY FIVE MINUTES FOR A TOTAL OF 3 DOSES OR CALL 911 IF NO RELIEF Prevacid Solutab ODT (Lansoprazole) 30 Mg Tab 30 Mg PO DAILY Mix with 4 ml water before giving via tube. Duloxetine DR (Duloxetine HCl) 60 Mg Capdr 60 Mg PO DAILY Ibuprofen 600 Mg Tab 600 Mg PO Q6H PRN Flovent Hfa 12 GM Inh (Fluticasone Propionate) 110 Mcg/Act Inh 2 Puff INH BID Trazodone (Trazodone HCl) 150 Mg Tablet 150 Mg PO HS Lamotrigine 200 Mg Tab 200 Mg PO BID Ventolin Hfa 18 GM Inh (Albuterol Sulfate) 90 Mcg/Act Aer 2 Puff INH Q4-6H PRN Aspir-81 (Aspirin) 81 Mg Tabdr Clonazepam 0.5 Mg Tab 0.5 Mg PO BID Metoprolol Tartrate 25 Mg Tab 25 Mg PO BID Active Ordered Medications Current Medications Medications (Trade) Dose Ordered Sig/Stacey Route Start Time Stop Time Status Last Admin Nitroglycerin/ Dextrose 250 ml @ 1.5 mls/hr TITRATE ONCE IV 04/29/17 17:30 05/06/17 16:09 04/29/17 17:47 Heparin Sodium/ Dextrose 250 ml @ 8.64 mls/hr TITRATE PRN IV 04/29/17 18:30 04/29/17 21:51 Sodium Chloride 1,000 ml @ 100 mls/hr Q10H IV 04/29/17 18:30 04/29/17 19:52 (NS Flush) 2 ml UNSCH PRN IV FLUSH 04/29/17 18:30 (NS Flush) 2 ml BID IV FLUSH 04/29/17 21:00 04/29/17 21:46 (Zofran Inj) 4 mg Q6H PRN IVP 9/4/17 18:30 (Narcan Inj) 0.4 mg UNSCH PRN IV 04/29/17 18:30 (Milk Of Magnesia Liq) 30 ml Q12H PRN PO 04/29/17 18:30 (Senokot) 17.2 mg Q12H PRN PO 04/29/17 18:30 (Dulcolax Supp) 10 mg DAILY PRN RECTAL 04/29/17 18:30 (Lactulose Liq) 30 ml DAILY PRN PO 04/29/17 18:30 (Proair Hfa Inh) 2 puff Q4HR PRN INH 04/29/17 18:45 (Lipitor) 40 mg HS PO 04/29/17 21:00 04/29/17 21:45 (KlonoPIN) 0.5 mg BID PO 04/29/17 21:00 04/29/17 21:45 (Cymbalta Dr) 60 mg DAILY PO 04/30/17 09:00 (Flovent Hfa 110 Mcg Inh) 2 puff BID INH 04/29/17 21:00 (LaMICtal) 200 mg BID PO 04/29/17 21:00 (Protonix) 40 mg DAILY PO 04/30/17 09:00 (Lopressor) 25 mg BID PO 04/29/17 21:00 04/29/17 21:47 (Desyrel) 150 mg HS PO 04/29/17 21:00 04/29/17 21:45 Family History non contributory Social History Was an EMT and electromedical equipment repairer, remote history of smoking, quit 35 years ago, occasional ETOH (Shameka Holman) Physical Exam Vital Signs Vital Signs Date Time Temp Pulse Resp B/P (MAP) Pulse Ox O2 Delivery O2 Flow Rate FiO2 04/30/17 06:00 69 04/30/17 05:00 66 04/30/17 04:00 60 04/30/17 04:00 98.6 60 18 103/69 (80) 96 04/30/17 03:00 62 04/30/17 02:00 63 04/30/17 01:00 67 04/30/17 00:00 63 04/30/17 00:00 98.0 63 20 103/55 (71) 97 04/29/17 23:00 65 04/29/17 22:00 69 04/29/17 21:30 98.2 68 20 133/86 (102) 97 04/29/17 21:30 68 04/29/17 21:03 04/29/17 19:41 80 20 119/65 (83) 99 Nasal Cannula 2.00 04/29/17 18:17 71 16 114/70 (85) 99 Nasal Cannula 2.00 04/29/17 17:59 57 14 111/65 (80) 99 Nasal Cannula 2.00 04/29/17 17:51 58 14 111/70 (84) 100 Nasal Cannula 2.00 04/29/17 17:47 60 113/82 04/29/17 17:14 113/82 (92) 04/29/17 17:11 98 Nasal Cannula 2.00 04/29/17 17:11 99 Nasal Cannula 2.00 04/29/17 17:11 115/75 (88) 04/29/17 17:03 97.9 63 14 115/71 (86) 100 Physical Exam GENERAL: MIddle age female SKIN: Warm and dry. HEAD: Atraumatic. Normocephalic. EYES: Pupils equal and round. No scleral icterus. No injection or drainage. ENT: No nasal bleeding or discharge. Mucous membranes pink and moist. NECK: Trachea midline. CARDIOVASCULAR: Regular rate and rhythm. Left chest wall pain at midaxillary line, left medial breast pain, increase left breast fullness at inferior aspect. RESPIRATORY: No accessory muscle use. Clear to auscultation. Breath sounds equal bilaterally. GASTROINTESTINAL: LUQ and epigastric tenderness to palpation MUSCULOSKELETAL: Extremities without clubbing, cyanosis, or edema. No obvious deformities. NEUROLOGICAL: Awake and alert. No obvious cranial nerve deficits. Motor grossly within normal limits. Five out of 5 muscle strength in the arms and legs. Normal speech. PSYCHIATRIC: Appropriate mood and affect; insight and judgment normal. Laboratory Laboratory Tests Test 04/29/17 16:08 04/29/17 17:00 04/29/17 20:05 04/30/17 02:15 Prothrombin Time 10.4 Prothromb Time International Ratio 0.9 Activated Partial Thromboplast Time 27.3 27.6 48.7 White Blood Count 8.9 6.9 Red Blood Count 4.06 3.32 Hemoglobin 12.9 10.6 Hematocrit 38.8 31.9 Mean Corpuscular Volume 95.5 95.9 Mean Corpuscular Hemoglobin 31.8 31.9 Mean Corpuscular Hemoglobin Concent 33.3 33.2 Red Cell Distribution Width 14.0 14.3 Platelet Count 345 249 Mean Platelet Volume 8.4 7.8 Neutrophils (%) (Auto) 66.5 60.7 Lymphocytes (%) (Auto) 23.8 28.2 Monocytes (%) (Auto) 6.2 7.7 Eosinophils (%) (Auto) 2.9 2.8 Basophils (%) (Auto) 0.6 0.6 Neutrophils # (Auto) 5.9 4.2 Lymphocytes # (Auto) 2.1 2.0 Monocytes # (Auto) 0.6 0.5 Eosinophils # (Auto) 0.3 0.2 Basophils # (Auto) 0.1 0.0 CBC Comment DIFF FINAL DIFF FINAL Differential Comment Blood Urea Nitrogen 9 11 Creatinine 0.86 0.78 Random Glucose 91 105 Total Protein 7.3 5.5 Albumin 4.0 3.0 Calcium Level 9.0 8.0 Alkaline Phosphatase 82 64 Aspartate Amino Transf (AST/SGOT) 19 12 Alanine Aminotransferase (ALT/SGPT) 23 17 Total Bilirubin 0.4 0.4 Sodium Level 141 142 Potassium Level 3.7 3.5 Chloride Level 106 108 Carbon Dioxide Level 26.1 28.5 Anion Gap 9 6 Estimat Glomerular Filtration Rate 67 75 Total Creatine Kinase 78 57 Troponin I LESS THAN 0.02 LESS THAN 0.02 Magnesium Level 2.0 B-Type Natriuretic Peptide 96 Lipase 157 (Shameka Holman) Result Diagram: 04/30/1721404/30/17214 Imaging Last [address] Angiography 04/29/17 1838 Signed Impressions: Service Date/Time: Saturday, April 29, 2017 19:09 - CONCLUSION: 1. No evidence of pulmonary embolism. Lungs are clear. 2. Abnormal regular soft tissue density adjacent to the spleen and stomach which is of unclear significance but could represent inflammatory change and possible pancreatitis. Further evaluation with an abdomen CT with oral and intravenous contrast is recommended. Avtar Garcia MD Chest X-Ray 04/29/17 1700 Signed Impressions: Service Date/Time: Saturday, April 29, 2017 17:02 - CONCLUSION: No acute disease. Anjel Weir MD FACR (Shameka Holman) Assessment and Plan Assessment and Plan Chest pain, cardiac cath 04/09/2017 patent stent, no occlusive ASHD LUQ and epigastric tenderness to palpation associated with abnormal CTPA Hx of recurrent esophageal stricture Hx breast cancer Plan: Consult Dr Gill--> defer to Dr Gill for further evaluation of abnormality noted on CT Pulmonary Angiogram Consult Dr. Cintron Start Imdur 30 mg 1/2 tablet Start amlodipine 2.5 mg daily Patient seen and evaluated by Dr Yarbrough who completed face to face encounter, did a physical exam and participated in evaluation and management. (Shameka Holman) Shameka Holman Apr 30, 2017 09:58 Sade Yarbrough MD May 01, 2017 14:47
[2017-04-30] MEDS: DULoxetine HCl DR 60 MG CAP PO SCH (10:13)
[2017-04-30] MEDS: lamoTRIgine 100 MG TAB PO SCH ×2 (10:13→23:05)
[2017-04-30] MEDS: METOPROLOL TARTRATE 25 MG TAB PO SCH ×2 (10:13→23:05)
[2017-04-30] MEDS: PANTOPRAZOLE SOD 40 MG DELAYED RELEASE TAB PO SCH (10:13)
[2017-04-30] MEDS: clonazePAM 0.5 MG TAB PO SCH ×2 (10:14→20:34)
[2017-04-30] MEDS: SODIUM CHLORIDE 0.9% FLUSH 10 ML FLUSH IV FLUSH SCH (10:14)
[2017-04-30] MEDS: amLODIPine BESYLATE 5 MG TAB PO SCH (12:41)
[2017-04-30 12:47] LABS: APTT (PATIENT) 31.9 SEC (24.3-30.1)
--- NOTE | 2017-04-30 13:46 | EKG ---
Date Performed: 04/29/2017 Time Performed: 17:05:52 PTAGE: 61 years EKG: Sinus rhythm MARKED LEFT AXIS DEVIATION NONSPECIFIC T-WAVE ABNORMALITY ABNORMAL ECG Compared to prior tracing no significant change PREVIOUS TRACING : 04/08/2017 11.20 DOCTOR: Enoch Ledezma Interpretating Date/Time 04/30/2017 13:44:55
--- NOTE | 2017-04-30 16:53 | PD.CONS ---
cc: Kevin Cintron MD; Saed Yarbrough MD; Anson Gill MD HPI Service CONSULTATION NOTE FOR SURGICAL ATTENDING, DR. KEVIN CINTRON General Surgery consult requested by cardiology and gastroenterology Consult Requested By Shameka ANGUIANO Reason for Consult s/p LEFT breast cancer; now with pain Primary Care Physician Jose Odell MD Apric[facility] [employer]her Dr. Yarbrough History of Present Illness This is a 61-year-old female with a past medical history of atherosclerotic heart disease, hypercholesterolemia, CVA, breast cancer and GERD. The patient came to the emergency department yesterday for midsternal chest pain. The patient did have a recent cardiac catheterization on April 09 which was normal. Her cardiac workup has revealed no acute findings. The patient does complain of increased left breast pain. She had a bilateral mastectomy done in [place] in 2004. The patient then relocated to the [facility] and had reconstruction surgery in [address] Mccall. She had no issues with her right breast implant. The left breast implant had to be removed due to an MRSA infection and now replaced. Recently she has noticed increase LEFT breast pain. A General Surgery consultation has been requested. Review of Systems Constitutional: DENIES: Fatigue, Fever Endocrine: DENIES: Polydipsia, Polyuria, Polyphagia Eyes: DENIES: Diplopia Ears, nose, mouth, throat: DENIES: Hearing loss Respiratory: DENIES: Apneas Cardiovascular: COMPLAINS OF: Chest pain Gastrointestinal: DENIES: Abdominal pain, Constipation, Diarrhea, Nausea, Vomiting Genitourinary: DENIES: Urinary frequency Musculoskeletal: DENIES: Joint pain Integumentary: DENIES: Abnormal pigmentation, Rash, Breast masses, Breast skin changes Hematologic/lymphatic: DENIES: Bruising Immunologic/allergic: DENIES: Eczema Neurologic: DENIES: Headache, Localized weakness Psychiatric: DENIES: Mood changes, Depression Past Family Social History Past Medical History Atherosclerotic heart disease LAD stents Hypercholesterolemia CVA Breast cancer GERD Past Surgical History Bilateral mastectomy--- 2004---in [place] Reconstruction breast surgery Status post trauma with splenic trauma and liver trauma Cholecystectomy Reported Medications Albuterol Atorvastatin Nitroglycerin Metoprolol Aspirin Ibuprofen Clonazepam Lamotrigine Duloxetine Trazodone Flovent Prevacid Allergies: Coded Allergies: Sulfa (Sulfonamide Antibiotics) (Unverified Allergy, Severe, Hives, 04/29/17 ) THROAT CLOSED UP penicillin G (Unverified Allergy, Severe, HIVES, 04/29/17) hylan G-F 20 (Unverified Allergy, Intermediate, SEVERE JOINT SWELLING; PAIN, 04/29/17) Active Ordered Medications Current Medications Medications (Trade) Dose Ordered Sig/Stacey Route Start Time Stop Time Status Last Admin Nitroglycerin/ Dextrose 250 ml @ 1.5 mls/hr TITRATE ONCE IV 04/29/17 17:30 05/06/17 16:09 04/29/17 17:47 Heparin Sodium/ Dextrose 250 ml @ 8.64 mls/hr TITRATE PRN IV 04/29/17 18:30 04/29/17 21:51 Sodium Chloride 1,000 ml @ 100 mls/hr Q10H IV 04/29/17 18:30 04/29/17 19:52 (NS Flush) 2 ml UNSCH PRN IV FLUSH 04/29/17 18:30 (NS Flush) 2 ml BID IV FLUSH 04/29/17 21:00 04/30/17 10:14 (Zofran Inj) 4 mg Q6H PRN IVP 04/29/17 18:30 (Narcan Inj) 0.4 mg UNSCH PRN IV 04/29/17 18:30 (Milk Of Magnesia Liq) 30 ml Q12H PRN PO 04/29/17 18:30 (Senokot) 17.2 mg Q12H PRN PO 04/29/17 18:30 (Dulcolax Supp) 10 mg DAILY PRN RECTAL 04/29/17 18:30 (Lactulose Liq) 30 ml DAILY PRN PO 04/29/17 18:30 (Proair Hfa Inh) 2 puff Q4HR PRN INH 04/29/17 18:45 (Lipitor) 40 mg HS PO 04/29/17 21:00 04/29/17 21:45 (KlonoPIN) 0.5 mg BID PO 04/29/17 21:00 04/30/17 10:14 (Cymbalta Dr) 60 mg DAILY PO 04/30/17 09:00 04/30/17 10:13 (Flovent Hfa 110 Mcg Inh) 2 puff BID INH 04/29/17 21:00 (LaMICtal) 200 mg BID PO 04/29/17 21:00 04/30/17 10:13 (Protonix) 40 mg DAILY PO 04/30/17 09:00 04/30/17 10:13 (Lopressor) 25 mg BID PO 04/29/17 21:00 04/30/17 10:13 (Desyrel) 150 mg HS PO 04/29/17 21:00 04/29/17 21:45 (Imdur) 15 mg DAILY@07 PO 05/01/17 07:00 (Norvasc) 2.5 mg DAILY PO 04/30/17 12:00 04/30/17 12:41 Family History Noncontributory Social History Denies tobacco use Denies illicit drug use Denies EtOH use Physical Exam Vital Signs Vital Signs Date Time Temp Pulse Resp B/P (MAP) Pulse Ox O2 Delivery O2 Flow Rate FiO2 04/30/17 16:00 98.0 85 18 113/67 (82) 97 04/30/17 12:00 97.9 69 18 140/88 (105) 97 04/30/17 08:00 97.6 65 18 135/87 (103) 99 04/30/17 06:00 69 04/30/17 05:00 66 04/30/17 04:00 60 04/30/17 04:00 98.6 60 18 103/69 (80) 96 04/30/17 03:00 62 04/30/17 02:00 63 04/30/17 01:00 67 04/30/17 00:00 63 04/30/17 00:00 98.0 63 20 103/55 (71) 97 04/29/17 23:00 65 04/29/17 22:00 69 04/29/17 21:30 98.2 68 20 133/86 (102) 97 04/29/17 21:30 68 04/29/17 21:03 04/29/17 19:41 80 20 119/65 (83) 99 Nasal Cannula 2.00 04/29/17 18:17 71 16 114/70 (85) 99 Nasal Cannula 2.00 04/29/17 17:59 57 14 111/65 (80) 99 Nasal Cannula 2.00 04/29/17 17:51 58 14 111/70 (84) 100 Nasal Cannula 2.00 04/29/17 17:47 60 113/82 04/29/17 17:14 113/82 (92) 04/29/17 17:11 98 Nasal Cannula 2.00 04/29/17 17:11 99 Nasal Cannula 2.00 04/29/17 17:11 115/75 (88) 04/29/17 17:03 97.9 63 14 115/71 (86) 100 Physical Exam GENERAL: Pleasant 61 year old female resting in bed in no acute distress. SKIN: Warm and dry. BREAST: s/p bilateral mastectomy; s/p reconstruction surgery; scars well healed without redness; no palpable fluid collection or masses; bilateral breast non tender to palpation. HEAD: Atraumatic. Normocephalic. EYES: Pupils equal and round. No scleral icterus. No injection or drainage. ENT: No nasal bleeding or discharge. Mucous membranes pink and moist. NECK: Trachea midline. CARDIOVASCULAR: Regular rate and rhythm. RESPIRATORY: No accessory muscle use. Clear to auscultation. Breath sounds equal bilaterally. GASTROINTESTINAL: Abdomen soft, non-tender, nondistended. Hepatic and splenic margins not palpable. MUSCULOSKELETAL: Extremities without clubbing, cyanosis, or edema. No obvious deformities. NEUROLOGICAL: Awake and alert. No obvious cranial nerve deficits. Motor grossly within normal limits. Five out of 5 muscle strength in the arms and legs. Normal speech. PSYCHIATRIC: Appropriate mood and affect; insight and judgment normal. Laboratory Laboratory Tests Test 04/29/17 17:00 04/29/17 20:05 04/30/17 02:15 04/30/17 11:48 White Blood Count 8.9 6.9 Red Blood Count 4.06 3.32 Hemoglobin 12.9 10.6 Hematocrit 38.8 31.9 Mean Corpuscular Volume 95.5 95.9 Mean Corpuscular Hemoglobin 31.8 31.9 Mean Corpuscular Hemoglobin Concent 33.3 33.2 Red Cell Distribution Width 14.0 14.3 Platelet Count 345 249 Mean Platelet Volume 8.4 7.8 Neutrophils (%) (Auto) 66.5 60.7 Lymphocytes (%) (Auto) 23.8 28.2 Monocytes (%) (Auto) 6.2 7.7 Eosinophils (%) (Auto) 2.9 2.8 Basophils (%) (Auto) 0.6 0.6 Neutrophils # (Auto) 5.9 4.2 Lymphocytes # (Auto) 2.1 2.0 Monocytes # (Auto) 0.6 0.5 Eosinophils # (Auto) 0.3 0.2 Basophils # (Auto) 0.1 0.0 CBC Comment DIFF FINAL DIFF FINAL Differential Comment Blood Urea Nitrogen 9 11 Creatinine 0.86 0.78 Random Glucose 91 105 Total Protein 7.3 5.5 Albumin 4.0 3.0 Calcium Level 9.0 8.0 Alkaline Phosphatase 82 64 Aspartate Amino Transf (AST/SGOT) 19 12 Alanine Aminotransferase (ALT/SGPT) 23 17 Total Bilirubin 0.4 0.4 Sodium Level 141 142 Potassium Level 3.7 3.5 Chloride Level 106 108 Carbon Dioxide Level 26.1 28.5 Anion Gap 9 6 Estimat Glomerular Filtration Rate 67 75 Total Creatine Kinase 78 57 Troponin I LESS THAN 0.02 LESS THAN 0.02 Activated Partial Thromboplast Time 27.6 48.7 31.9 Magnesium Level 2.0 B-Type Natriuretic Peptide 96 Lipase 157 Result Diagram: 04/30/17 0215 04/30/17 0215 Imaging Last Impressions Chest CT 04/30/17 0000 Signed Impressions: Service Date/Time: Sunday, April 30, 2017 20:45 - CONCLUSION: 1. Dependent atelectasis in the lungs with trace pleural fluid. 2. Abnormal fluid left upper quadrant. See abdomen CT report. Kevin Duvall MD Abdomen/Pelvis CT 04/30/17 0000 Signed Impressions: Service Date/Time: Sunday, April 30, 2017 20:45 - CONCLUSION: 1. Abnormal fluid or inflammatory change in the left upper quadrant. Differential diagnosis includes colitis in the hepatic flexure or distal pancreatitis. Hemorrhage in the left upper quadrant could give a similar appearance. No splenic injury identified. Previous cholecystectomy. Kevin Duvall MD CT Angiography 04/29/17 1838 Signed Impressions: Service Date/Time: Saturday, April 29, 2017 19:09 - CONCLUSION: 1. No evidence of pulmonary embolism. Lungs are clear. 2. Abnormal regular soft tissue density adjacent to the spleen and stomach which is of unclear significance but could represent inflammatory change and possible pancreatitis. Further evaluation with an abdomen CT with oral and intravenous contrast is recommended. Avtar Garcia MD Chest X-Ray 04/29/17 1704 Signed Impressions: Service Date/Time: Saturday, April 29, 2017 17:02 - CONCLUSION: No acute disease. Anjel Weir MD FACR Assessment and Plan Problem List: (1) Abnormal CT of the abdomen ICD Codes: R93.5 - Abnormal findings on diagnostic imaging of other abdominal regions, including retroperitoneum (2) Abdominal pain ICD Codes: R10.9 - Unspecified abdominal pain (3) Status post bilateral mastectomy ICD Codes: Z90.13 - Acquired absence of bilateral breasts and nipples (4) Status post bilateral breast reconstruction ICD Codes: Z98.890 - Other specified postprocedural states (5) Status post cholecystectomy ICD Codes: Z90.49 - Acquired absence of other specified parts of digestive tract (6) Acquired absence of breast and absent nipple ICD Codes: Z90.10 - Acquired absence of breast and absent nipple Status: Chronic (7) History of breast cancer in female ICD Codes: Z85.3 - Personal history of malignant neoplasm of breast Status: Acute (8) Coronary artery disease ICD Codes: I25.10 - Atherosclerotic heart disease of [place] coronary artery without angina pectoris Assessment and Plan 61 year old female with chest pain and LEFT breast pain s/p bilateral mastectomy (2004) and reconstructive surgery (2011) status post cholecystectomy -No palpable masses or fluid collections -Regular diet -Will follow patient in the outpatient setting -Thank you for this consult Discussed Condition With Dr. Saida Lopez Attending Statement NOTE FOR SURGICAL ATTENDING, DR. KEVIN CINTRON Patient seen and examined Abdominal discomfort in the left upper quadrant and left flank Reviewed CT scan which showed inflammatory changes around the tail of the pancreas and stomach No surgical intervention required at this time Consider EGD colonoscopy outpatient basis as the patient is somewhat anxious to get home because of the weather I agree with above assessment and plan. The exam, history, and the medical decision-making described in the above note were completed with the assistance of the mid-level provider. I reviewed and agree with the findings presented. I attest that I had a [id number] encounter with the patient on the same day, and personally performed and documented my assessment and findings in the medical record. The following services were provided during this hospital visit: Chart data review, vital sign assessments/reviewing monitor data Review of consultations notes if present. Medication orders/review and/or management Ordering and/or reviewing lab tests Ordering and/or interpreting/reviewing x-rays and/or diagnostic studies Care of the patient and discussion of the patient with the care team Documentation time To help prompt me to consider important information that might be impacting today's encounter and assessment, information from prior notes written by myself or my colleagues may have been "brought forward/copy and pasted" into today's note. Rufina Georges Apr 30, 2017 16:53 Kevin Cintron MD May 01, 2017 15:20
[2017-04-30] MEDS ORDERED: DIATRIZOATE MEGLUM/DIATRIZOATE SOD 9 ML CUP PO ONE (17:15)
--- NOTE | 2017-04-30 17:15 | MB ---
cc: GALINA DIAZ M.D., RENATO A. MD COMBS,CEDRIC Villaseñor MD DATE OF : 1955 DATE OF CONSULTATION: 04/29/2017 HISTORY OF PRESENT ILLNESS: The patient is a 61-year-old white female I was asked to see for further evaluation and management of non-cardiac chest pain. She has a history of a stroke and coronary artery disease. She has had a coronary artery stent placed and underwent heart catheterization just three weeks ago that showed patent stent and vessels. She has had several months of occasional chest discomfort that responds to nitroglycerin. Yesterday she had a much more severe episode in the chest that was sharp and throbbing and felt like it may have been in her breast/breast implant on the left. Blood pressure was as high as 225/185 at home so she came into the hospital. Nitroglycerin again has helped. Cardiac enzymes unremarkable during this admission. The severe pain resolved and now she has a new pain she tells me under the left breast in the vicinity of the inferior aspect of the left breast implant. This pain actually does change with certain positions and movements. PAST MEDICAL HISTORY: Significant for: 1. Coronary disease. 2. The prior stroke. 3. Previous breast cancer. 4. She has had esophageal dysphagia in the past treated with dilation about once per year but she tells me no specific lesion had been discovered. Her last dilation was about a year ago. She has had no recent dysphagia. MEDICATIONS: 1. Nitroglycerin. 2. Prevacid Solutab 3. Duloxetine. 4. Ibuprofen. 5. Flovent. 6. Trazodone. 7. Lomotrigine. 8. Ventolin. 9. Baby aspirin. 10. Clonazepam. 11. Metoprolol. ALLERGIES: SULFA PRODUCTS, PENICILLIN, HYLAN GF, MULTI-DRUG RESISTANT ORGANISM. PAST SURGICAL HISTORY: Bilateral mastectomy. Heart catheterization most recently on April 09, with Dr. Coburn. REVIEW OF SYSTEMS: No recent headaches, no vision difficulties. No recent seizures. No dysphagia, odynophagia. No early satiety. She chronically eats only small meals at a time. No unexplained weight loss. No respiratory difficulties. No fever or chills. No nausea or vomiting. No bowel irregularities. No history of liver, pancreatic or thyroid disease. No recent weight changes. PHYSICAL EXAMINATION: On physical examination temperature is 97.6 with a pulse of 65, blood pressure 135/87 today, saturation 99%. Her weight is 71.9 kg. GENERAL: She is alert. She is oriented x3. She is anicteric. HEENT: Extraocular motions are intact. I appreciate no submandibular, cervical, supraclavicular or epitrochlear adenopathy. Lungs: Clear to auscultation. Heart: Regular rate and rhythm with no gross murmur or gallop. Abdomen: Good bowel sounds with no appreciable bruit. The abdomen is soft and completely nontender. No masses or hepatosplenomegaly are noted. No pedal edema, Dupuytren's contracture or palmar erythema. There is a significant tenderness in a radicular distribution from the left costal margin around to the mid scapular line at around level T6. CT angiography performed yesterday revealed no pulmonary embolism. The lungs were clear. There was an abnormal regular soft tissue density adjacent to the spleen and stomach of unclear significance and could represent inflammatory change and possible pancreatitis. Chest x-ray yesterday revealed no acute disease. LABORATORY STUDIES: Today white count 6.9, hemoglobin 10.6 (hemoglobin was 12.9 on admission yesterday), platelets 249, INR 0.9, lipase was normal yesterday with normal CPK and troponins. Sodium today is 142, potassium 3.5, BUN was 11, creatinine 0.78. Liver enzymes yesterday and today normal. IMPRESSION Two types of pain: 1. One has improved significantly with nitroglycerin with a normal cardiac evaluation and coronary artery evaluation. I suspect this may be related to esophageal spasm. Whether this is related to reflux or primary spasm is unclear. She has had no recent dysphagia. We discussed reflux in detail including lower esophageal sphincter mechanism and action. I stressed with her the importance of avoiding factors that can aggravate reflux by relaxing the sphincter, including caffeine, nicotine, chocolate, peppermint and alcohol. I recommend prescription strength PPI such as omeprazole or Prilosec OTC, 20 milligrams per day, 1/2 hour before breakfast. She should sleep in the reverse Trendelenburg position. She may follow up with her waiter/waitress in [place]. 2. The second pain is definitely a skeletal process. There is tenderness in a radicular distribution from the left mid scapular line around to the left mid axillary line at the level of the T6 vertebrae. This may be addressed by her primary care physician. 3. Lymphocytic colitis. She has tried budesonide with no significant benefit. She has tried Pepto-Bismol and takes Imodium p.r.n. Again, she may follow up with her waiter/waitress in [place] regarding this condition. ADDENDUM: I reviewed the CT angiogram performed yesterday with the radiologist there seems to be blood in the chest wall muscles in the lateral chest wall up to the axilla. The image actually cut off part of the lateral chest wall so optimal evaluation was not possible. The left breast implant appears intact with no evidence of a rupture. The scan also reveals apparent hemorrhage in the subdiaphragmatic region of the left new the tail of pancreas. There is no old studies to compare it to see if there may have been hemorrhagic cyst in this region for some reason. I reviewed all this with the patient. We will schedule CT thorax and CT abdomen with and without contrast for more there is sedation of what may be going on. She should stay in the hospital until this is evaluated. MD ROXANNA Bryant/MAURICE /2:58 PM /8:54 AM
[2017-04-30] MEDS ORDERED: IOHEXOL 350 MG/ML 10 ML VIAL (for RAD DIAG) IVCONTRAST ONE (21:02)
--- NOTE | 2017-04-30 21:20 | RADRPT ---
EXAM DATE/TIME: 04/30/2017 20:45 [facility] COMPARISON: No previous studies available for comparison. INDICATIONS : Abdominal pain. Evaluate abnormal regular soft tissue density adjacent to the spleen and stomach seen on CTA done yesterday. IV CONTRAST: 80 cc Omnipaque 350 (iohexol) IV ; Cumulative dose for multiple exams. ORAL CONTRAST: Prescribed oral contrast ingested. RADIATION DOSE: 15.86 CTDIvol (mGy) ; Combined studies - Thorax/Abdomen/Pelvis MEDICAL HISTORY : Carcinoma, breast. Cardiovascular disease Seizures.Colitis SURGICAL HISTORY : Hysterectomy. Mastectomy, bilateral. LAD stent ENCOUNTER: Initial ACUITY: 2 days PAIN SCALE: 7/10 LOCATION: All quadrants. TECHNIQUE: Volumetric scanning of the abdomen and pelvis was performed. Using automated exposure control and ad justment of the mA and/or kV according to patient size, radiation dose was kept as low as reasonably achievable to obtain optimal diagnostic quality images. DICOM format image data is available electro nically for review and comparison. FINDINGS: Abnormal fluid left upper quadrant, around the splenic hilum and also around the distal pancreas and around the splenic flexure of the colon. Exact etiology unclear. This may represent a focal colitis. Cannot exclude distal pancreatitis. Hemorrhage may give a similar appearance. Lung bases demonstrate some dependent atelectasis. No acute findings in the liver, spleen, adrenals, right kidney or pancreas. Scarring left kidney. Cholecystectomy. No acute bony abnormality. Previous breast augmentation. CONCLUSION: 1. Abnormal fluid or inflammatory change in the left upper quadrant. Differential diagnosis includes colitis in the hepatic flexure or distal pancreatitis. Hemorrhage in the left upper quadrant could gi ve a similar appearance. No splenic injury identified. Previous cholecystectomy. Kevin Duvall MD on April 30, 2017 at 21:13 Board Certified Radiologist. This report was verified electronically.
--- NOTE | 2017-04-30 21:22 | RADRPT ---
EXAM DATE/TIME: 04/30/2017 20:45 [facility] COMPARISON: No previous studies available for comparison. INDICATIONS : Left side chest wall pain and tenderness. IV CONTRAST: 80 cc Omnipaque 350 (iohexol) IV ; Cumulative dose for multiple exams. RADIATION DOSE: 15.96 CTDIvol (mGy) ; Combined studies - Thorax/Abdomen/Pelvis MEDICAL HISTORY : Carcinoma, breast. Cardiovascular disease. Seizures. Colitis SURGICAL HISTORY : Hysterectomy. Mastectomy, Bilateral. LAD stent ENCOUNTER: Initial ACUITY: 1 day PAIN SCALE: 7/10 LOCATION: Left chest TECHNIQUE: Volumetric scanning of the chest was performed. Using automated exposure control and adjustment of t he mA and/or kV according to patient size, radiation dose was kept as low as reasonably achievable to obtain optimal diagnostic quality images. DICOM format image data is available electronically for review and comparison. Follow-up recommendations for detected pulmonary nodules are based at a minimum on nodule size and pa tient risk factors according to Fleischner Society Guidelines. FINDINGS: There is dependent atelectasis in the lungs with trace pleural fluid. No pneumothorax. No adenopathy. Trace pericardial fluid. No hilar, mediastinal axillary adenopathy. Mild coronary calcifications. Previous breast augmentation . No acute bony abnormalities. Abnormal fluid in the left upper quadrant. CONCLUSION: 1. Dependent atelectasis in the lungs with trace pleural fluid. 2. Abnormal fluid left upper quadrant. See abdomen CT report. Kevin Duvall MD on April 30, 2017 at 21:19 Board Certified Radiologist. This report was verified electronically.
[2017-04-30] MEDS: ATORVASTATIN 40 MG TAB PO SCH (23:05)
--- NOTE | 2017-04-30 23:05 | HHI.HP ---
HPI [facility] Primary Care Physician Jose Odell MD Admission Diagnosis Unstable Angina Diagnoses: Travel History International Travel<30 Days: No Contact w/Intl Traveler <30 Da: No Traveled to Known Affected Are: No History of Present Illness 61-year-old female with a history of CAD, depression, GERD, who presents with sudden onset chest discomfort which feels like a small animal trying to get out of for chest. This abated as soon as she presented to the ER, however she continues report sharp left-sided chest pain which is worse with palpation. She does report nausea, bilious vomiting prior to admission, however this has resolved. We discussed that it is unlikely that she has any life-threatening condition at this time, however she says the chest pain that she had on presentation was extremely severe, difficult to describe, and that she cannot stay away from the hospital if she has this pain again. Review of Systems Except as stated in HPI: all other systems reviewed are Neg Past Family Social History Past Medical History CAD Depression GERD Breast lump status post bilateral mastectomy Past Surgical History Bilateral mastectomy Tonsillectomy Esophageal dilation 4 Cardiac stenting Reported Medications Reported Meds & Active Scripts Active Reported Nitroglycerin SL (Nitroglycerin) 0.4 Mg Subl 0.4 Mg SL DIRECTED PRN ONE TABLET UNDER THE TONGUE NEEDED FOR CHEST PAIN, MAY REPEAT EVERY FIVE MINUTES FOR A TOTAL OF 3 DOSES OR CALL 911 IF NO RELIEF Prevacid Solutab ODT (Lansoprazole) 30 Mg Tab 30 Mg PO DAILY Mix with 4 ml water before giving via tube. Duloxetine DR (Duloxetine HCl) 60 Mg Capdr 60 Mg PO DAILY Ibuprofen 600 Mg Tab 600 Mg PO Q6H PRN Flovent Hfa 12 GM Inh (Fluticasone Propionate) 110 Mcg/Act Inh 2 Puff INH BID Trazodone (Trazodone HCl) 150 Mg Tablet 150 Mg PO HS Lamotrigine 200 Mg Tab 200 Mg PO BID Ventolin Hfa 18 GM Inh (Albuterol Sulfate) 90 Mcg/Act Aer 2 Puff INH Q4-6H PRN Aspir-81 (Aspirin) 81 Mg Tabdr Clonazepam 0.5 Mg Tab 0.5 Mg PO BID Metoprolol Tartrate 25 Mg Tab 25 Mg PO BID Allergies: Coded Allergies: Sulfa (Sulfonamide Antibiotics) (Unverified Allergy, Severe, Hives, 04/29/17 ) THROAT CLOSED UP penicillin G (Unverified Allergy, Severe, HIVES, 04/29/17) hylan G-F 20 (Unverified Allergy, Intermediate, SEVERE JOINT SWELLING; PAIN, 04/29/17) Family History Mother with bowel resection. Father from prostate cancer Social History Nonsmoker. Drinks occasionally. Denies any illicit drugs. Physical Exam Vital Signs Vital Signs Date Time Temp Pulse Resp B/P (MAP) Pulse Ox O2 Delivery O2 Flow Rate FiO2 04/30/17 16:00 98.0 85 18 113/67 (82) 97 04/30/17 12:00 97.9 69 18 140/88 (105) 97 04/30/17 08:00 97.6 65 18 135/87 (103) 99 04/30/17 06:00 69 04/30/17 05:00 66 04/30/17 04:00 60 04/30/17 04:00 98.6 60 18 103/69 (80) 96 04/30/17 03:00 62 04/30/17 02:00 63 04/30/17 01:00 67 04/30/17 00:00 63 04/30/17 00:00 98.0 63 20 103/55 (71) 97 Physical Exam GENERAL: This is a well-nourished, well-developed patient, in no apparent distress. SKIN: No rashes, ecchymoses or lesions. Cool and dry. HEAD: Atraumatic. Normocephalic. No temporal or scalp tenderness. EYES: Pupils equal round and reactive. Extraocular motions intact. No scleral icterus. No injection or drainage. ENT: Nose without bleeding, purulent drainage or septal hematoma. Throat without erythema, tonsillar hypertrophy or exudate. Uvula midline. Airway patent. NECK: Trachea midline. No JVD or lymphadenopathy. Supple, nontender, no meningeal signs. CARDIOVASCULAR: Regular rate and rhythm without murmurs, gallops, or rubs. RESPIRATORY: Clear to auscultation. Breath sounds equal bilaterally. No wheezes , rales, or rhonchi. tenderness to palpation of left [id number] and 11th ribs.no masses noted. GASTROINTESTINAL: Abdomen soft, non-tender, nondistended. No hepato-splenomegaly , or palpable masses. No guarding. MUSCULOSKELETAL: Extremities without clubbing, cyanosis, or edema. No joint tenderness, effusion, or edema noted. No calf tenderness. Negative Homans sign bilaterally. NEUROLOGICAL: Awake and alert. Cranial nerves II through XII intact. Motor and sensory grossly within normal limits. Five out of 5 muscle strength in all muscle groups. Normal speech. Laboratory Laboratory Tests Test 04/30/17 02:15 04/30/17 11:48 White Blood Count 6.9 Red Blood Count 3.32 Hemoglobin 10.6 Hematocrit 31.9 Mean Corpuscular Volume 95.9 Mean Corpuscular Hemoglobin 31.9 Mean Corpuscular Hemoglobin Concent 33.2 Red Cell Distribution Width 14.3 Platelet Count 249 Mean Platelet Volume 7.8 Neutrophils (%) (Auto) 60.7 Lymphocytes (%) (Auto) 28.2 Monocytes (%) (Auto) 7.7 Eosinophils (%) (Auto) 2.8 Basophils (%) (Auto) 0.6 Neutrophils # (Auto) 4.2 Lymphocytes # (Auto) 2.0 Monocytes # (Auto) 0.5 Eosinophils # (Auto) 0.2 Basophils # (Auto) 0.0 CBC Comment DIFF FINAL Differential Comment Activated Partial Thromboplast Time 48.7 31.9 Blood Urea Nitrogen 11 Creatinine 0.78 Random Glucose 105 Total Protein 5.5 Albumin 3.0 Calcium Level 8.0 Alkaline Phosphatase 64 Aspartate Amino Transf (AST/SGOT) 12 Alanine Aminotransferase (ALT/SGPT) 17 Total Bilirubin 0.4 Sodium Level 142 Potassium Level 3.5 Chloride Level 108 Carbon Dioxide Level 28.5 Anion Gap 6 Estimat Glomerular Filtration Rate 75 Result Diagram: 04/30/1721404/30/17214 Caprini VTE Risk Assessment Caprini VTE Risk Assessment: Mod/High Risk (score >= 2) Caprini Risk Assessment Model Point Value = 1 Point Value = 2 Point Value = 3 Point Value = 5 Age 41-60 Minor surgery BMI > 25 kg/m2 Swollen legs Varicose veins or History of unexplained or recurrent spontaneous Oral contraceptives or hormone replacement Sepsis (< 1 month) Serious lung disease, including pneumonia (< 1 month) Abnormal pulmonary function Acute myocardial infarction Congestive heart failure (< 1 month) History of inflammatory bowel disease Medical patient at bed rest Age 61-74 Arthroscopic surgery Major open surgery (> 45 min) Laparoscopic surgery (> 45 min) Malignancy Confined to bed (> 72 hours) Immobilizing plaster cast Central venous access Age >= 75 History of VTE Family history of VTE Factor V Leiden Prothrombin [id number] Lupus anticoagulant Anticardiolipin antibodies Elevated serum homocysteine Heparin-induced thrombocytopenia Other congenital or acquired thrombophilia Stroke (< 1 month) Elective arthroplasty Hip, pelvis, or leg fracture Acute spinal cord injury (< 1 month) Prophylaxis Regimen Total Risk Factor Score Risk Level Prophylaxis Regimen 0-1 Low Early ambulation 2 Moderate Order ONE of the following: *Sequential Compression Device (SCD) *Heparin 5000 units SQ BID 3-4 Higher Order ONE of the following medications: *Heparin 5000 units SQ TID *Enoxaparin/Lovenox 40 mg SQ daily (WT < 150 kg, CrCl > 30 mL/min) *Enoxaparin/Lovenox 30 mg SQ daily (WT < 150 kg, CrCl > 10-29 mL/min) *Enoxaparin/Lovenox 30 mg SQ BID (WT < 150 kg, CrCl > 30 mL/min) AND/OR *Sequential Compression Device (SCD) 5 or more Highest Order ONE of the following medications: *Heparin 5000 units SQ TID (Preferred with Epidurals) *Enoxaparin/Lovenox 40 mg SQ daily (WT < 150 kg, CrCl > 30 mL/min) *Enoxaparin/Lovenox 30 mg SQ daily (WT < 150 kg, CrCl > 10-29 mL/min) *Enoxaparin/Lovenox 30 mg SQ BID (WT < 150 kg, CrCl > 30 mL/min) AND *Sequential Compression Device (SCD) Assessment and Plan Assessment and Plan //Possible Unstable angina //Atypical chest pain -Recent cardiac catheter reviewed. Troponins negative 3. Chest x-ray negative CTA pulmonary angiogram negative for pulmonary embolism. Likely rib pain/costochondritis pretender palpation. CT pulmonary angiogram negative for acute process. Troponins negative. Unlikely cardiac. Possibility of esophageal spasm. Patient reporting a severe pain prior to admission which is not her current pain. Appreciate cardiology assistance. Discharge when cleared by cardiology. GERD. Chronic. Continue PPI. Hyperlipidemia. Chronic. Continue home statin Depression. Chronic. Stable. Denies SSI. Continue home medications. //Prophylaxis. SCDs. Hold anticoagulation pending possible procedure. Discussed Condition With patient. Physician Certification 2 Midnight Certification Type: Admission for Inpatient Services Order for Inpatient Services The services are ordered in accordance with Medicare regulations or non- Medicare payer requirements, as applicable. In the case of services not specified as inpatient-only, they are appropriately provided as inpatient services in accordance with the 2-midnight benchmark. Estimated LOS (days): 2 days is the estimated time the patient will need to remain in the hospital, assuming treatment plan goals are met and no additional complications. Post-Hospital Plan: Not yet determined Jose Okeefe MD Apr 30, 2017 23:05
[2017-05-01] VITALS (15 sets, daily range): BP systolic 101–111; BP diastolic 52–66; PULSE 60–113; RESP 18; TEMP 97.2–98.4; O2SAT 95–98
[2017-05-01] MEDS ORDERED: MORPHINE SULFATE 4 MG/ML INJ IV PUSH PRN
[2017-05-01] MEDS: SODIUM CHLOR 0.9% 1000 ML INJ 1,000 ML IV SCH (00:30)
[2017-05-01 06:57] LABS: AUTOMATED NEUTROPHIL # 4.6 TH/MM3 (1.8-7.7); BASOPHIL % 0.5 % (0.0-2.0); EOSINOPHIL # 0.3 TH/MM3 (0-0.4); EOSINOPHIL % 4.1 % (0.0-4.0); HEMATOCRIT 32.8 % (35.0-46.0); HEMO FLAGS DIFF FINAL; LYMPH % 20.8 % (9.0-44.0); LYMPHOCYTE # 1.4 TH/MM3 (1.0-4.8); MEAN CELL VOLUME 96.1 FL (80.0-100.0); MEAN CORPUSCULAR HEMOGLOBIN 32.1 PG (27.0-34.0); MEAN CORPUSCULAR HGB CONC 33.4 % (32.0-36.0); MONO % 7.9 % (0.0-8.0); NEUT % 66.7 % (16.0-70.0); PLATELET COUNT 274 TH/MM3 (150-450); RED BLOOD COUNT 3.42 MIL/MM3 (4.00-5.30); RED CELL DISTRIBUTION WIDTH 14.2 % (11.6-17.2); WHITE BLOOD COUNT 6.8 TH/MM3 (4.0-11.0)
[2017-05-01] MEDS ORDERED: ISOSORBIDE MONONITRATE 30 MG TAB PO SCH (07:00)
[2017-05-01 07:18] LABS: AMYLASE 42 U/L (25-115); ANION GAP 7 MEQ/L (5-15); AST (GOT) 11 U/L (15-37); BICARBONATE 28.3 MEQ/L (21.0-32.0); BLOOD UREA NITROGEN 7 MG/DL (7-18); CHLORIDE 106 MEQ/L (98-107); GLOMERULAR FILTRATION RATE 93 ML/MIN (>89); POTASSIUM 3.9 MEQ/L (3.5-5.1); SODIUM (NA) 141 MEQ/L (136-145)
[2017-05-01 07:19] LABS: ALT (GPT) 17 U/L (10-53)
[2017-05-01 07:21] LABS: ALKALINE PHOSPHATASE 67 U/L (45-117); TOTAL BILIRUBIN ADULT 0.3 MG/DL (0.2-1.0)
[2017-05-01] MEDS: SODIUM CHLORIDE 0.9% FLUSH 10 ML FLUSH IV FLUSH SCH ×2 (09:00→10:17)
[2017-05-01] MEDS: DULoxetine HCl DR 60 MG CAP PO SCH (10:16)
[2017-05-01] MEDS: clonazePAM 0.5 MG TAB PO SCH (10:16)
[2017-05-01] MEDS: lamoTRIgine 100 MG TAB PO SCH (10:16)
[2017-05-01] MEDS: METOPROLOL TARTRATE 25 MG TAB PO SCH (10:17)
[2017-05-01] MEDS: PANTOPRAZOLE SOD 40 MG DELAYED RELEASE TAB PO SCH (10:17)
[2017-05-01] MEDS: amLODIPine BESYLATE 5 MG TAB PO SCH (10:17)
--- NOTE | 2017-05-01 14:00 | PD.CARD.PN ---
Subjective Subjective Remarks The patient complains of fatigue and left chest wall pain. has a slight headache. No SOB or lightheadedness. No palpitations. She had a 4 beat run NSVT. (Shameka Holman) Subjective Remarks The exam, history, and the medical decision-making described in the above note were completed with the assistance of the mid-level provider. I reviewed and agree with the findings presented. I attest that I had a [id number] encounter with the patient on the same day, and personally performed and documented my assessment and findings in the medical record.Seems to have a GI/ surgical /breast problem, dw, Dr Gill and Dr Cintron (Sade Yarbrough MD) Objective Medications Current Medications Medications (Trade) Dose Ordered Sig/Stacey Route Start Time Stop Time Status Last Admin Nitroglycerin/ Dextrose 250 ml @ 1.5 mls/hr TITRATE ONCE IV 04/29/17 17:30 05/06/17 16:09 04/29/17 17:47 Heparin Sodium/ Dextrose 250 ml @ 8.64 mls/hr TITRATE PRN IV 04/29/17 18:30 04/29/17 21:51 Sodium Chloride 1,000 ml @ 100 mls/hr Q10H IV 04/29/17 18:30 05/01/17 00:30 (NS Flush) 2 ml UNSCH PRN IV FLUSH 04/29/17 18:30 (NS Flush) 2 ml BID IV FLUSH 04/29/17 21:00 05/01/17 09:00 (Zofran Inj) 4 mg Q6H PRN IVP 04/29/17 18:30 (Narcan Inj) 0.4 mg UNSCH PRN IV 04/29/17 18:30 (Milk Of Magnesia Liq) 30 ml Q12H PRN PO 04/29/17 18:30 (Senokot) 17.2 mg Q12H PRN PO 04/29/17 18:30 (Dulcolax Supp) 10 mg DAILY PRN RECTAL 04/29/17 18:30 (Lactulose Liq) 30 ml DAILY PRN PO 04/29/17 18:30 (Proair Hfa Inh) 2 puff Q4HR PRN INH 04/29/17 18:45 (Lipitor) 40 mg HS PO 04/29/17 21:00 04/30/17 23:05 (KlonoPIN) 0.5 mg BID PO 04/29/17 21:00 05/01/17 10:16 (Cymbalta Dr) 60 mg DAILY PO 04/30/17 09:00 05/01/17 10:16 (Flovent Hfa 110 Mcg Inh) 2 puff BID INH 04/29/17 21:00 (LaMICtal) 200 mg BID PO 04/29/17 21:00 05/01/17 10:16 (Protonix) 40 mg DAILY PO 04/30/17 09:00 05/01/17 10:17 (Lopressor) 25 mg BID PO 04/29/17 21:00 05/01/17 10:17 (Imdur) 15 mg DAILY@07 PO 05/01/17 07:00 05/01/17 07:05 (Norvasc) 2.5 mg DAILY PO 04/30/17 12:00 05/01/17 10:17 (Desyrel) 150 mg HS PO 05/01/17 21:00 (Morphine Inj) 2 mg Q3H PRN IV PUSH 05/01/17 00:00 05/01/17 01:15 Vital Signs / I&O Vital Signs Date Time Temp Pulse Resp B/P (MAP) Pulse Ox O2 Delivery O2 Flow Rate FiO2 05/01/17 11:45 97.2 113 18 101/53 (69) 95 05/01/17 09:00 98.4 84 18 105/66 (79) 98 05/01/17 07:01 65 05/01/17 06:00 62 05/01/17 05:00 66 05/01/17 04:00 64 05/01/17 04:00 98.3 74 18 101/52 (68) 97 05/01/17 03:00 68 05/01/17 02:00 72 05/01/17 01:00 84 05/01/17 00:00 88 05/01/17 00:00 98.4 90 18 111/66 (81) 96 04/30/17 23:00 92 04/30/17 22:00 80 04/30/17 20:00 80 04/30/17 20:00 98.8 88 18 118/81 (93) 96 04/30/17 16:00 98.0 85 18 113/67 (82) 97 I/O 04/30/17 04/30/17 04/30/17 05/01/17 05/01/17 05/01/17 07:00 15:00 23:00 07:00 15:00 23:00 Intake Total 1306 ml 1400 ml 240 ml Output Total 600 ml Balance 706 ml 1400 ml 240 ml Intake Oral 240 ml 1400 ml 240 ml IV Total 1066 ml Output Urine Total 600 ml # Voids 4 3 # Bowel Movements 0 2 1 Physical Exam GENERAL: middle age female sitting up in the chair SKIN: Warm and dry. HEAD: Normocephalic. EYES: No scleral icterus. No injection or drainage. NECK: Supple, trachea midline. No JVD or lymphadenopathy. CARDIOVASCULAR: Regular rate and rhythm without murmurs, gallops, or rubs. Left chest wall pain in the axillary region RESPIRATORY: Breath sounds equal bilaterally. No accessory muscle use. GASTROINTESTINAL: Abdomen soft, non-tender, nondistended. LUQ tenderness with palpation MUSCULOSKELETAL: No cyanosis, or edema. BACK: Nontender without obvious deformity. No CVA tenderness. Laboratory Laboratory Tests Test 05/01/17 05:03 White Blood Count 6.8 TH/MM3 Red Blood Count 3.42 MIL/MM3 Hemoglobin 11.0 GM/DL Hematocrit 32.8 % Mean Corpuscular Volume 96.1 FL Mean Corpuscular Hemoglobin 32.1 PG Mean Corpuscular Hemoglobin Concent 33.4 % Red Cell Distribution Width 14.2 % Platelet Count 274 TH/MM3 Mean Platelet Volume 8.3 FL Neutrophils (%) (Auto) 66.7 % Lymphocytes (%) (Auto) 20.8 % Monocytes (%) (Auto) 7.9 % Eosinophils (%) (Auto) 4.1 % Basophils (%) (Auto) 0.5 % Neutrophils # (Auto) 4.6 TH/MM3 Lymphocytes # (Auto) 1.4 TH/MM3 Monocytes # (Auto) 0.5 TH/MM3 Eosinophils # (Auto) 0.3 TH/MM3 Basophils # (Auto) 0.0 TH/MM3 CBC Comment DIFF FINAL Differential Comment Blood Urea Nitrogen 7 MG/DL Creatinine 0.65 MG/DL Random Glucose 85 MG/DL Total Protein 5.6 GM/DL Albumin 3.0 GM/DL Calcium Level 8.7 MG/DL Alkaline Phosphatase 67 U/L Aspartate Amino Transf (AST/SGOT) 11 U/L Alanine Aminotransferase (ALT/SGPT) 17 U/L Total Bilirubin 0.3 MG/DL Sodium Level 141 MEQ/L Potassium Level 3.9 MEQ/L Chloride Level 106 MEQ/L Carbon Dioxide Level 28.3 MEQ/L Anion Gap 7 MEQ/L Estimat Glomerular Filtration Rate 93 ML/MIN Amylase Level 42 U/L Lipase 116 U/L Imaging Last [address] 04/30/17 0000 Signed Impressions: Service Date/Time: Sunday, April 30, 2017 20:45 - CONCLUSION: 1. Dependent atelectasis in the lungs with trace pleural fluid. 2. Abnormal fluid left upper quadrant. See abdomen CT report. Kevin Duvall MD Abdomen/Pelvis CT 04/30/17 0000 Signed Impressions: Service Date/Time: Sunday, April 30, 2017 20:45 - CONCLUSION: 1. Abnormal fluid or inflammatory change in the left upper quadrant. Differential diagnosis includes colitis in the hepatic flexure or distal pancreatitis. Hemorrhage in the left upper quadrant could give a similar appearance. No splenic injury identified. Previous cholecystectomy. Kevin Duvall MD CT Angiography 04/29/17 1838 Signed Impressions: Service Date/Time: Saturday, April 29, 2017 19:09 - CONCLUSION: 1. No evidence of pulmonary embolism. Lungs are clear. 2. Abnormal regular soft tissue density adjacent to the spleen and stomach which is of unclear significance but could represent inflammatory change and possible pancreatitis. Further evaluation with an abdomen CT with oral and intravenous contrast is recommended. Avtar Garcia MD Chest X-Ray 04/29/17 [id number] Signed Impressions: Service Date/Time: Saturday, April 29, 2017 17:02 - CONCLUSION: No acute disease. Anjel Weir MD FACR (Shameka Holman) Assessment and Plan Assessment and Plan Chest pain, cardiac cath 04/09/2017 patent stent, no occlusive ASHD. Etiology appears to be esophageal reflux LUQ and epigastric tenderness to palpation associated with abnormal CT abdomen Hx of recurrent esophageal stricture Hx breast cancer Plan: The patient is clear from a cardiac standpoint for discharge. She has a standing appointment coming up with her move coordinator, Dr Coburn. She was advised to follow up with her Manager [facility] in [place]. Patient seen and evaluated by Dr Yarbrough who completed face to face encounter, did a physical exam and participated in evaluation and management. (Shameka Holman) Shameka Holman May 01, 2017 14:00 Sade Yarbrough MD May 01, 2017 14:52
--- NOTE | 2017-05-01 14:08 | HHI.GIFU ---
Subjective Remarks alert Nad has LUQ pain on/off Objective Vitals I&O Vital Signs Date Time Temp Pulse Resp B/P (MAP) Pulse Ox O2 Delivery O2 Flow Rate FiO2 05/01/17 11:45 97.2 113 18 101/53 (69) 95 05/01/17 09:00 98.4 84 18 105/66 (79) 98 05/01/17 07:01 65 05/01/17 06:00 62 05/01/17 05:00 66 05/01/17 04:00 64 05/01/17 04:00 98.3 74 18 101/52 (68) 97 05/01/17 03:00 68 05/01/17 02:00 72 05/01/17 01:00 84 05/01/17 00:00 88 05/01/17 00:00 98.4 90 18 111/66 (81) 96 04/30/17 23:00 92 04/30/17 22:00 80 04/30/17 20:00 80 04/30/17 20:00 98.8 88 18 118/81 (93) 96 04/30/17 16:00 98.0 85 18 113/67 (82) 97 I/O 04/30/17 04/30/17 04/30/17 05/01/17 05/01/17 05/01/17 07:00 15:00 23:00 07:00 15:00 23:00 Intake Total 1306 ml 1400 ml 240 ml Output Total 600 ml Balance 706 ml 1400 ml 240 ml Intake Oral 240 ml 1400 ml 240 ml IV Total 1066 ml Output Urine Total 600 ml # Voids 4 3 # Bowel Movements 0 2 1 Laboratory Laboratory Tests Test 05/01/17 05:03 White Blood Count 6.8 Red Blood Count 3.42 Hemoglobin 11.0 Hematocrit 32.8 Mean Corpuscular Volume 96.1 Mean Corpuscular Hemoglobin 32.1 Mean Corpuscular Hemoglobin Concent 33.4 Red Cell Distribution Width 14.2 Platelet Count 274 Mean Platelet Volume 8.3 Neutrophils (%) (Auto) 66.7 Lymphocytes (%) (Auto) 20.8 Monocytes (%) (Auto) 7.9 Eosinophils (%) (Auto) 4.1 Basophils (%) (Auto) 0.5 Neutrophils # (Auto) 4.6 Lymphocytes # (Auto) 1.4 Monocytes # (Auto) 0.5 Eosinophils # (Auto) 0.3 Basophils # (Auto) 0.0 CBC Comment DIFF FINAL Differential Comment Blood Urea Nitrogen 7 Creatinine 0.65 Random Glucose 85 Total Protein 5.6 Albumin 3.0 Calcium Level 8.7 Alkaline Phosphatase 67 Aspartate Amino Transf (AST/SGOT) 11 Alanine Aminotransferase (ALT/SGPT) 17 Total Bilirubin 0.3 Sodium Level 141 Potassium Level 3.9 Chloride Level 106 Carbon Dioxide Level 28.3 Anion Gap 7 Estimat Glomerular Filtration Rate 93 Amylase Level 42 Lipase 116 Imaging Physical Exam CHEST: Chest is clear to auscultation and percussion. CARDIAC: Regular rate and rhythm with no murmur gallop or rubs. ABDOMEN: Soft, nondistended, mild tenderness LUQ radiating posteriorly to flank bowel sounds are present in all four quadrants. EXTREMITIES: No clubbing, cyanosis, or edema. SKIN: Normal; no rash; no jaundice. Assessment and Plan Assessment: (1) abdominal pain (2) Abnormal CT of the abdomen ICD Codes: R93.5 - Abnormal findings on diagnostic imaging of other abdominal regions, including retroperitoneum Plan Discussed findings w pt ..Ct reviewed w radiology ? inflammatory changes at splenic flexure colitis vs pancreatitis at tail region... Pt being dcd today have adeed cipro and flagyl and bentyl therapy ...Will need oupt follow up and consider c scope at some point ..pt has h/ o lymphocytic colitis in past....current labs reviewed amylase lipase and WBC normal and also normal LFTS noted. pt to call back if worsenign pain recurs. pt understood completely . Rene Merrill MD May 01, 2017 14:08
[2017-05-01] MEDS ORDERED: traZODone HCL 100 MG TAB PO SCH (21:00)
--- NOTE | 2017-05-02 00:14 | HHI.DS ---
Discharge Summary Admission Date Apr 29, 2017 at 18:33 Discharge Date: May 01, 2017 Admitting Diagnosis Unstable Angina (1) Musculoskeletal chest pain ICD Code: R07.89 - Other chest pain (2) Abnormal CT of the abdomen ICD Code: R93.5 - Abnormal findings on diagnostic imaging of other abdominal regions, including retroperitoneum Procedures no invasive procedures. Brief History - From Admission 61-year-old female with a history of CAD, depression, GERD, who presents with sudden onset chest discomfort which feels like a small animal trying to get out of for chest. This abated as soon as she presented to the ER, however she continues report sharp left-sided chest pain which is worse with palpation. She does report nausea, bilious vomiting prior to admission, however this has resolved. We discussed that it is unlikely that she has any life-threatening condition at this time, however she says the chest pain that she had on presentation was extremely severe, difficult to describe, and that she cannot stay away from the hospital if she has this pain again. CBC/BMP: 05/01/17 0503 05/01/17 0503 Significant Findings Laboratory Tests Test 04/29/17 16:08 04/29/17 17:00 04/29/17 20:05 04/30/17 02:15 Estimat Glomerular Filtration Rate 67 ML/MIN (>89) 75 ML/MIN (>89) Troponin I LESS THAN 0.02 NG/ML LESS THAN 0.02 NG/ML Red Blood Count 3.32 MIL/MM3 (4.00-5.30) Hemoglobin 10.6 GM/DL (11.6-15.3) Hematocrit 31.9 % (35.0-46.0) Activated Partial Thromboplast Time 48.7 SEC (24.3-30.1) Total Protein 5.5 GM/DL (6.4-8.2) Albumin 3.0 GM/DL (3.4-5.0) Calcium Level 8.0 MG/DL (8.5-10.1) Aspartate Amino Transf (AST/SGOT) 12 U/L (15-37) Chloride Level 108 MEQ/L (98-107) Test 04/30/17 11:48 05/01/17 05:03 Activated Partial Thromboplast Time 31.9 SEC (24.3-30.1) Red Blood Count 3.42 MIL/MM3 (4.00-5.30) Hemoglobin 11.0 GM/DL (11.6-15.3) Hematocrit 32.8 % (35.0-46.0) Eosinophils (%) (Auto) 4.1 % (0.0-4.0) Total Protein 5.6 GM/DL (6.4-8.2) Albumin 3.0 GM/DL (3.4-5.0) Aspartate Amino Transf (AST/SGOT) 11 U/L (15-37) Imaging Last Impressions Chest CT 04/30/17 0000 Signed Impressions: Service Date/Time: Sunday, April 30, 2017 20:45 - CONCLUSION: 1. Dependent atelectasis in the lungs with trace pleural fluid. 2. Abnormal fluid left upper quadrant. See abdomen CT report. Kevin Duvall MD Abdomen/Pelvis CT 04/30/17 0000 Signed Impressions: Service Date/Time: Sunday, April 30, 2017 20:45 - CONCLUSION: 1. Abnormal fluid or inflammatory change in the left upper quadrant. Differential diagnosis includes colitis in the hepatic flexure or distal pancreatitis. Hemorrhage in the left upper quadrant could give a similar appearance. No splenic injury identified. Previous cholecystectomy. Kevin Duvall MD CT Angiography 04/29/17 1838 Signed Impressions: Service Date/Time: Saturday, April 29, 2017 19:09 - CONCLUSION: 1. No evidence of pulmonary embolism. Lungs are clear. 2. Abnormal regular soft tissue density adjacent to the spleen and stomach which is of unclear significance but could represent inflammatory change and possible pancreatitis. Further evaluation with an abdomen CT with oral and intravenous contrast is recommended. Avtar Garcia MD Chest X-Ray 04/29/17 1704 Signed Impressions: Service Date/Time: Saturday, April 29, 2017 17:02 - CONCLUSION: No acute disease. Anjel Weir MD FACR PE at Discharge GENERAL: patient sitting up in chair. Appears comfortable. SKIN: Warm and dry. HEAD: Normocephalic. EYES: No scleral icterus. No injection or drainage. NECK: Supple, trachea midline. No JVD or lymphadenopathy. CARDIOVASCULAR: Regular rate and rhythm without murmurs, gallops, or rubs. RESPIRATORY: Breath sounds equal bilaterally. No accessory muscle use. GASTROINTESTINAL: Abdomen soft, non-tender, nondistended. MUSCULOSKELETAL: No cyanosis, or edema. BACK: Nontender without obvious deformity. No CVA tenderness. Pt update on day of discharge Patient seen this morning. Says she feels well. Reports sharp left-sided chest pain as before. No change. Denies any shortness of breath. Feels like going home. Hospital Course Troponins ordered and negative. No acute findings on EKG. Initially pain improved with nitroglycerin, however patient continued to have pleuritic left- sided chest pain. CT pulmonary angiogram negative. Likely musculoskeletal pain. Gastroenterology and surgery consult to due to history of esophageal dilation. Patient is noted to have abnormal inflammatory change and left upper quadrant. Patient advised to follow-up with primary care for continued monitoring of this. //Possible Unstable angina //Atypical chest pain -Recent cardiac catheter reviewed. Troponins negative 3. Chest x-ray negative CTA pulmonary angiogram negative for pulmonary embolism. Likely rib pain/costochondritis pretender palpation. CT pulmonary angiogram negative for acute process. Troponins negative. Unlikely cardiac. Possibility of esophageal spasm. Patient reporting a severe pain prior to admission which is not her current pain. Appreciate cardiology assistance. Discharge when cleared by cardiology. GERD. Chronic. Continue PPI. Hyperlipidemia. Chronic. Continue home statin Depression. Chronic. Stable. Denies SSI. Continue home medications. //Prophylaxis. SCDs. Hold anticoagulation pending possible procedure. Pt Condition on Discharge: Good Discharge Disposition: Discharge Home Discharge Time: <= 30 minutes Discharge Instructions DIET: Follow Instructions for: Heart Healthy Diet Activities you can perform: Regular-No Restrictions Follow up Referrals: Cardiology - 2 Weeks Gastroenterology - 1 Week with Anson Gill MD PCP Follow-up - 1 Week with Jose Odell Md Continued Medications: Albuterol 18 GM Inh (Ventolin Hfa 18 GM Inh) 90 Mcg/Act Aer 2 PUFF INH Q4-6H PRN for SHORTNESS OF BREATH, #1 INHALER [address] (Aspir-81) 81 Mg Tabdr Atorvastatin (Atorvastatin) 40 Mg Tab 40 MG PO HS for Cholesterol Management, #30 TAB 0 Refills Clonazepam (Clonazepam) 0.5 Mg Tab 0.5 MG PO BID, #60 TAB [address] (Duloxetine DR) 60 Mg Capdr 60 MG PO DAILY, #30 CAP 0 Refills Fluticasone 12 GM Inh (Flovent Hfa 12 GM Inh) 110 Mcg/Act Inh 2 PUFF INH BID for Asthma Management, #1 INHALER 0 Refills Ibuprofen (Ibuprofen) 600 Mg Tab 600 MG PO Q6H PRN for Pain/Inflammation, #40 TAB 0 Refills Lamotrigine (Lamotrigine) 200 Mg Tab 200 MG PO BID for Control Seizures, #60 TAB 0 Refills Lansoprazole ODT (Prevacid Solutab ODT) 30 Mg Tab 30 MG PO DAILY for Ulcer Prevention, #30 TAB 0 Refills Mix with 4 ml water before giving via tube. Metoprolol Tartrate (Metoprolol Tartrate) 25 Mg Tab 25 MG PO BID, #60 TAB 0 Refills Nitroglycerin SL (Nitroglycerin SL) 0.4 Mg Subl 0.4 MG SL DIRECTED PRN for CHEST PAIN, #100 TAB.SL 0 Refills ONE TABLET UNDER THE TONGUE NEEDED FOR CHEST PAIN, MAY REPEAT EVERY FIVE MINUTES FOR A TOTAL OF 3 DOSES OR CALL 911 IF NO RELIEF Trazodone (Trazodone) 150 Mg Tablet 150 MG PO HS for Control Depression, #30 TAB 0 Refills Jose Okeefe MD May 02, 2017 00:14
== END 2017-05-01 14:36 | disposition home or self-care (01) | DRG 392 ==
LOC: NEPE 17:01 → NEDA 18:33 → OBSVTOIN 18:33 → HCIS 21:10
PROVIDERS: ADMIT Internal Medicine; ATTEND Internal Medicine
DX: K22.4 Dyskinesia of esophagus (principal); I47.2 Ventricular tachycardia; I10 Essential (primary) hypertension; R94.8 Abnormal results of function studies of other organs and systems; R07.89 Other chest pain; I25.10 Atherosclerotic heart disease of native coronary artery without angina pectoris; F32.9 Major depressive disorder, single episode, unspecified; E78.5 Hyperlipidemia, unspecified; N64.4 Mastodynia; R10.12 Left upper quadrant pain; K21.9 Gastro-esophageal reflux disease without esophagitis; Z85.3 Personal history of malignant neoplasm of breast; Z86.73 Personal history of transient ischemic attack (TIA), and cerebral infarction without residual deficits; Z90.13 Acquired absence of bilateral breasts and nipples; Z95.5 Presence of coronary angioplasty implant and graft; Z85.820 Personal history of malignant melanoma of skin; Z85.828 Personal history of other malignant neoplasm of skin; Z87.891 Personal history of nicotine dependence; Z88.2 Allergy status to sulfonamides; Z88.0 Allergy status to penicillin; Z86.14 Personal history of Methicillin resistant Staphylococcus aureus infection
CPT/HCPCS: 71010; 71260; 71275; 74177; 80053; 82150; 82550; 83690; 83735; 83880; 84484; 85025; 85610; 85730; 93005; 96361; 96374; J1644; J2270; J7030; J7040; Q9963; Q9967